=== PATIENT | female | born 1980 | race Caucasian/White ===

== ENCOUNTER 2017-09-01 17:58 | Inpatient (IN) | payer SELFPAY ==
[~2017-09-01 17:58] MED LIST: ISOVUE-370 76%-LOCM 1 ML ONE
[2017-09-01 18:43] LABS: #Basophils 0.1 thou/uL (0.0-0.2); #Eosinphils 0.1 thou/uL (0.0-0.7); #Lymphocytes 2.5 thou/uL (1.20-3.40); #Monocytes 0.6 thou/uL (0.11-0.59); #Neutrophils 7.3 thou/uL (1.40-6.50); %Basophils 0.8 % (0.0-1.0); %Eosinophils 0.5 % (0.0-10.0); %Lymphocytes 23.4 % (21.0-51.0); %Neutrophils 69.4 % (42.0-75.0); Hemoglobin 14.7 g/dL (12.0-16.0); Mean Corpuscular HGB CONC 34.4 g/dL (32.0-36.0); Mean Corpuscular Hemoglobin 37.6 pg (27.0-31.0); Mean Platelet Volume 7.6 fL (7.4-10.4); Platelet Count 272 thou/uL (130-400); RBC Distribution Width 12.2 % (11.5-14.5); Red Blood Cell (RBC) Count 3.91 mill/uL (4.20-5.40); White Blood Cell (WBC) Count 10.6 thou/uL (4.8-10.8)
[2017-09-01 18:53] LABS: BHCG - Serum Negative (NEGATIVE); Pregs Control Background? CLEAR/WHITE (CLR/WHITE); Pregs Control Bar Appear? YES (CONTROL BAR)
[2017-09-01 18:59] LABS: MDiff Complete? YES; Macrocytosis SLIGHT = 6-15 cells (100X) (0-5/hpf); PLT Morphology Comment Appears Adequate
[2017-09-01 19:08] LABS: ALT (SGPT) 53 U/L (8-55); AST (SGOT) 263 U/L (5-34); Albumin 3.5 g/dL (3.5-5.0); Alkaline Phosphatase 353 U/L (40-150); Anion Gap 14 mmol/L (10-20); BUN (Urea Nitrogen) 6 mg/dL (7.0-18.7); Bilirubin, Total 1.7 mg/dL (0.2-1.2); Calc. Creatinine Clearance 0 mL/min (70-130); Calcium 8.8 mg/dL (7.8-10.44); Carbon Dioxide 29 mmol/L (22-29); Chloride 95 mmol/L (98-107); Estimated GFR-MDRD Greater than 90; Globulin 3.5 g/dL (2.4-3.5); Glucose 95 mg/dL (70-105); Lipase 36 U/L (8-78); Sodium 136 mmol/L (136-145)
[2017-09-01 19:14] LABS: Potassium 2.4 mmol/L (3.5-5.1)
[2017-09-01 19:24] LABS: PTT 31.3 SEC (22.9-36.1)
[2017-09-01 19:25] LABS: INR-International Normal Ratio 1.1; Magnesium 1.4 mg/dL (1.6-2.6); Prothrombin Time 14.6 SEC (12.0-14.7)
[2017-09-01] MEDS ORDERED: Pantoprazole 40 MG VIAL ONE (19:28)
[2017-09-01] MEDS ORDERED: Morphine 4 MG/ML VIAL ONE (19:28)
--- NOTE | 2017-09-01 19:51 | RAD ---
PORTABLE UPRIGHT FRONTAL CHEST RADIOGRAPH 09/01/17 COMPARISON: None. HISTORY: Abdominal pain, dyspnea. FINDINGS: No pneumothorax, pleural fluid, focal consolidation, or alveolar edema. Heart and mediastinal contour s are unremarkable. IMPRESSION: No acute findings. POS: [facility]
[2017-09-01 19:52] LABS: Base Excess-Venous 7.8 mmol/L (0 (+/- 2.5)); Bicarbonate (HCO3v) 29.1 mmol/L (1.0-85.0); CO2 Tension (PvCO2) 30.3 mmHg (41.0-51.0); Calcium, Ionized 1.06 mmol/L (1.12-1.32); Hemoglobin - Calc 14.9 g/dL (12.0-18.0); O2 Tension (PvO2) 23.3 mmHg (35.0-45.0); Potassium 2.2 mmol/L (3.4-4.7); vO2 Saturation-calc 53.7 % (94-98)
[2017-09-01] MEDS ORDERED: Magnesium Sulfate 2 GM/100 ML BAG ONE (19:54)
[2017-09-01] MEDS ORDERED: Promethazine HCl 25 MG/ML VIAL ONE (20:01)
[2017-09-01 20:02] LABS: Bilirubin Moderate (Negative); Blood, Urine Negative (Negative); Clarity CLOUDY (Clear); Glucose, Urine (Dipstick) Negative (Negative); Leukocyte Small (Negative); Nitrite Positive (Negative); Protein, Urine (Dipstick) 30 mg/dL (Neg-Trace); Specific Gravity, Urine 1.022 (1.002-1.036)
[2017-09-01 20:04] LABS: Bacteria/HPF 1+ HPF (None Seen); RBC/HPF 0-3 HPF (0-3); WBC/HPF 21-50 HPF (0-3)
[2017-09-01 20:09] LABS: Yeast-AUWi Flag 55.9 (0-25.0)
[2017-09-01] MEDS ORDERED: Potassium Chloride 20 MEQ/100 ML PREMIX BAG ONE (20:16)
[2017-09-01 20:17] LABS: Other Casts/LPF None Seen LPF (0-3 Hyaline); Yeast-All Forms None Seen HPF (None Seen)
--- NOTE | 2017-09-01 20:52 | ULT ---
RIGHT UPPER QUADRANT ULTRASOUND 09/01/17 COMPARISON: None. HISTORY: Bloating epigastric pain. TECHNIQUE: Multiplanar morrison scale sonographic imaging of the right upper quadrant obtained. FINDINGS: The pancreas is grossly unremarkable but partially obscured by bowel gas, particularly the tail. The hepatic parenchyma is heterogeneous and echogenic, suggesting hepatocellular disease, such as steatos is. Right kidney measures 10.8 cm in craniocaudal dimension and demonstrates no evidence for stone, h ydronephrosis or mass. Common bile duct measures in the 4 mm range, within normal limits. No gallbladder wall thickening or pericholecystic fluid. No gallstones are seen. The loading inspector reports a negative Winkler's sign. IMPRESSION: No evidence for cholelithiasis, cholecystitis, or biliary dilatation. POS: [facility]
--- NOTE | 2017-09-01 21:27 | CT ---
CT OF ABDOMEN AND PELVIS 09/01/17 COMPARISON: None. HISTORY: Upper abdominal pain. TECHNIQUE: Serial axial CT imaging at 5 mm intervals from lung bases through pubic symphysis with IV contrast. C oronal reformatted imaging obtained. FINDINGS: The imaged lung bases are unremarkable. The lack of oral contrast limits assessment of the bowel. The liver is enlarged and demonstrates severe fatty infiltration. The liver measures 26 cm craniocaudal dimension and 28 cm transverse dimension. The gallbladder, spleen, pancreas, adrenal glands, and kidn eys demonstrate no acute findings. There is a low density lesion in the lower pole of the left kidney , likely on the basis of a small cyst. There is colonic wall prominence from the level of the splenic flexure through the rectum but the col on is decompressed and thus this likely simply represents decompressed colon and not colitis. Clinica l correlation is required. Appendix appears unremarkable. No evidence for small bowel obstruction. The vascular structures of the abdomen and pelvis appear patent. No lymphadenopathy is noted within t he abdomen or pelvis. The osseous structures demonstrate no worrisome findings. IMPRESSION: Markedly enlarged liver with severe fatty infiltration noted. POS: [facility]
[2017-09-01] MEDS ORDERED: Potassium Chloride 20 MEQ TAB ONE (21:33)
[2017-09-01 21:50] LABS: Bilirubin Small (Negative); Blood, Urine Negative (Negative); Clarity CLEAR (Clear); Glucose, Urine (Dipstick) Negative (Negative); Leukocyte Negative (Negative); Nitrite Negative (Negative); Protein, Urine (Dipstick) Negative (Neg-Trace)
[2017-09-01 21:51] LABS: Specific Gravity, Urine 1.053 (1.002-1.036)
[2017-09-01 23:02] LABS: Lactic Acid 3.7 mmol/L (0.5-2.2)
[2017-09-01 23:27] LABS: HBCM Index 0.09 S/CO (0-0.79); HBSAg Index 0.23 S/CO (0-0.99); HIV (1/2) Antibody/Antigen Non-Reactive (NonReactive); HIV 1/2 INDEX 0.13 S/CO (<1.00); Hep A IgM AB Non-Reactive (NonReactive); Hep A IgM S/CO 0.14 S/CO (0-0.79); Hep B Surf Ag Non-Reactive S/CO (NonReactive); Hep C IgG Ab Non-Reactive (NonReactive); Hep C Index 0.16 S/CO (0-0.79); Hepatitis B Core IGM Abs Non-Reactive (NonReactive)
[2017-09-01] MEDS ORDERED: Ondansetron ODT 4 MG TAB SL PRN (23:40)
[2017-09-01] MEDS ORDERED: Acetaminophen 325 MG TAB PO PRN (23:40)
[2017-09-01] MEDS ORDERED: Ondansetron HCl/PF 4 MG/2 ML Vial IVP PRN (23:40)
[2017-09-02 00:04] VITALS: BMI 19.8
[2017-09-02] MEDS: NS 0.9% w/ 20 MEQ KCL 1,000 ML IV SCH ×2 (00:24→09:18)
[2017-09-02] MEDS ORDERED: Melatonin 3 MG TAB PO SCH (01:00)
[2017-09-02] MEDS ORDERED: Ondansetron HCl/PF 4 MG/2 ML Vial IVP PRN (01:13)
[2017-09-02] MEDS ORDERED: Acetaminophen 325 MG TAB PO PRN (01:13)
[2017-09-02] MEDS ORDERED: Bisacodyl 5 MG TAB PO PRN (01:13)
[2017-09-02] MEDS: Morphine 4 MG/ML VIAL SLOW IVP PRN ×4 (01:29→20:54)
[2017-09-02] MEDS: cefTRIAXone\\ROCEPHIN 1 GM in Sterile Water 10 ML SLOW IVP SCH (02:10)
--- NOTE | 2017-09-02 02:14 | HP ---
PRIMARY CARE PHYSICIAN: Jose Oseguera. CHIEF COMPLAINT: Abdominal distention. HISTORY OF PRESENT ILLNESS: Ms. Scott is a pleasant 37-year-old lady who was seen at [facility] on 09/02/2017. She has a past medical history of pancreatitis. Over the last couple of months, she reports that she has been drinking alcohol every other day, since she is stressed out about her father's health. She also smokes cigarettes. Over the last few weeks, she has noted bilateral foot pain and burning sens ation. She also started having tingling sensation in the hands over the last few days. She had bila teral knee pain today. Over the last one month, she has noted abdominal bloating. She reports that she usually has anxiety and possible panic attacks, at least few times a week, even though she has never been formally diagnosed with panic disorder. REVIEW OF SYSTEMS: Other systems reviewed and noted to be negative. ALLERGIES: No known drug allergies. CURRENT MEDICATIONS: None. PAST MEDICAL HISTORY: Pancreatitis. PAST SURGICAL HISTORY: None. SOCIAL HISTORY: The patient drinks alcohol every other day. She smokes half a pack of cigarettes a day. She denies recreational drug use. PHYSICAL EXAMINATION: GENERAL: On examination, Ms. Scott is awake and alert, not in acute distress. VITAL SIGNS: Blood pressure is 115/81, pulse is 93, she is breathing at rate of 16, and saturating 1 00% on room air. She is afebrile. EYES: She has scleral icterus, no conjunctival pallor. ENT: Moist mucosal membranes, no oropharyngeal erythema or exudates. NECK: Supple, nontender, normal range of movement, trachea is midline. RESPIRATORY: Accessory muscles of breathing are not active. Chest wall movements are symmetric bila terally. LUNGS: Clear to auscultation without wheeze, rhonchi, or crepitations. CARDIOVASCULAR: S1 and S2 are heard, regular. Peripheral pulses palpable. No carotid bruit, no per icardial rub. ABDOMEN: Distended, nontender, bowel sounds heard. She has hepatomegaly. NEUROLOGIC: Cranial nerves II-XII intact, deep tendon reflexes are 2+. No flapping tremor. MUSCULOSKELETAL: Power is 5/5 in all 4 extremities. SKIN: No rashes or subcutaneous nodules. LYMPHATIC: No cervical lymphadenopathy. PSYCHIATRIC: Normal mood, normal affect. The patient is oriented to person, place, and time. LABORATORY DATA: Ms. Scott's labs and investigations were reviewed. I reviewed her electrocardiogr am, which shows normal sinus rhythm, no ST changes to suggest an acute coronary syndrome. I also rev iewed her chest x-ray, which does not show any pulmonary infiltrates. She had ultrasound of the abdo men, which did not show any cholelithiasis, cholecystitis, or biliary distention. She also had a CT scan of the abdomen and pelvis, which showed markedly enlarged liver with severe fatty infiltration. Laboratory investigation show normal white count, normal hemoglobin, normal platelet count, ESR 8, IN R 1.1. Sodium 136, potassium 2.4, creatinine 0.59, total bilirubin elevated at 1.7, AST elevated at 263, ALT normal at 53, alkaline phosphatase elevated at 353, normal lipase, normal TSH and normal ser um test. Acute hepatitis panel is nonreactive. Urinalysis is positive for ketones, nitrit e, bilirubin, urobilinogen, leukocyte esterase, wbc, and hyaline casts. ASSESSMENT AND PLAN: Ms. Scott is a pleasant 37-year-old lady who was seen at [facility] on 09/02/2017. Her problem list includes: 1. Urinary tract infection: She will be admitted to the hospital and treated with Rocephin. We juvenal l await urine cultures. 2. Abnormal liver function tests: Likely secondary to alcohol use, although other etiologies cannot be excluded at this time. We will consult Gastroenterology Service for help with further management . 3. Tobacco abuse: The patient has been counseled regarding tobacco cessation. We will start her on nicotine replacement therapy. 4. Alcohol abuse: The patient has been counseled regarding cessation of alcohol. 5. Hypokalemia: Replace potassium, recheck potassium level. LEVEL OF RISK: High. LEVEL OF COMPLEXITY: High.
[2017-09-02 04:53] LABS: ALT (SGPT) 33 U/L (8-55); AST (SGOT) 136 U/L (5-34); Albumin 2.8 g/dL (3.5-5.0); Alkaline Phosphatase 268 U/L (40-150); Anion Gap 12 mmol/L (10-20); BUN (Urea Nitrogen) 5 mg/dL (7.0-18.7); Bilirubin, Total 1.8 mg/dL (0.2-1.2); Calc. Creatinine Clearance 141 mL/min (70-130); Calcium 7.4 mg/dL (7.8-10.44); Carbon Dioxide 23 mmol/L (22-29); Chloride 106 mmol/L (98-107); Estimated GFR-MDRD Greater than 90; Globulin 2.6 g/dL (2.4-3.5); Glucose 92 mg/dL (70-105); Potassium 2.6 mmol/L (3.5-5.1); Protein, Total 5.4 g/dL (6.0-8.3); Sodium 138 mmol/L (136-145)
[2017-09-02] MEDS: Potassium Chloride 20 MEQ in Premix Bag 1 BAG IVPB SCH ×4 (05:43→13:58)
[2017-09-02] MEDS: Enoxaparin Sodium 40 MG/0.4 ML SYRINGE SC SCH (07:39)
[2017-09-02] MEDS: Nicotine 21 MG PATCH TD SCH (10:01)
[2017-09-03] MEDS: cefTRIAXone\\ROCEPHIN 1 GM in Sterile Water 10 ML SLOW IVP SCH (01:30)
[2017-09-03 01:54] LABS: Anion Gap 9 mmol/L (10-20); BUN (Urea Nitrogen) 4 mg/dL (7.0-18.7); Calc. Creatinine Clearance 160 mL/min (70-130); Calcium 7.5 mg/dL (7.8-10.44); Carbon Dioxide 24 mmol/L (22-29); Chloride 106 mmol/L (98-107); Estimated GFR-MDRD Greater than 90; Glucose 87 mg/dL (70-105); Potassium 3.7 mmol/L (3.5-5.1); Sodium 135 mmol/L (136-145)
[2017-09-03] MEDS: Morphine 4 MG/ML VIAL SLOW IVP PRN ×3 (03:56→17:56)
[2017-09-03 04:45] LABS: INR-International Normal Ratio 1.2; Prothrombin Time 15.6 SEC (12.0-14.7)
[2017-09-03 04:48] LABS: #Eosinphils 0.1 thou/uL (0.0-0.7); #Lymphocytes 2.3 thou/uL (1.20-3.40); #Monocytes 0.4 thou/uL (0.11-0.59); #Neutrophils 3.4 thou/uL (1.40-6.50); %Basophils 0.5 % (0.0-1.0); %Eosinophils 1.2 % (0.0-10.0); %Lymphocytes 36.8 % (21.0-51.0); %Monocytes 5.7 % (0.0-10.0); %Neutrophils 55.9 % (42.0-75.0); Hemoglobin 11.2 g/dL (12.0-16.0); Mean Corpuscular HGB CONC 34.7 g/dL (32.0-36.0); Mean Corpuscular Hemoglobin 38.8 pg (27.0-31.0); Mean Platelet Volume 8.6 fL (7.4-10.4); Platelet Count 146 thou/uL (130-400); Red Blood Cell (RBC) Count 2.89 mill/uL (4.20-5.40); White Blood Cell (WBC) Count 6.1 thou/uL (4.8-10.8)
[2017-09-03 04:59] LABS: ALT (SGPT) 25 U/L (8-55); AST (SGOT) 80 U/L (5-34); Acetaminophen Less than 6.0 mcg/mL (10.0-30.0); Albumin 2.8 g/dL (3.5-5.0); Alkaline Phosphatase 255 U/L (40-150); Anion Gap 9 mmol/L (10-20); BUN (Urea Nitrogen) 4 mg/dL (7.0-18.7); Bilirubin, Total 1.4 mg/dL (0.2-1.2); Calc. Creatinine Clearance 160 mL/min (70-130); Calcium 7.5 mg/dL (7.8-10.44); Carbon Dioxide 24 mmol/L (22-29); Chloride 105 mmol/L (98-107); Estimated GFR-MDRD Greater than 90; Globulin 2.6 g/dL (2.4-3.5); Glucose 81 mg/dL (70-105); Iron Binding Capacity, Total 139 mcg/dL (265-497); Magnesium 1.6 mg/dL (1.6-2.6); Phosphorus 2.9 mg/dL (2.3-4.7); Potassium 3.4 mmol/L (3.5-5.1); Protein, Total 5.4 g/dL (6.0-8.3); Sodium 135 mmol/L (136-145)
--- NOTE | 2017-09-03 06:28 | CON ---
DATE OF CONSULTATION: 09/02/2017 REASON FOR CONSULTATION: GI consult for fatty liver. HISTORY OF PRESENT ILLNESS: Ms. Scott is a 37-year-old female. She states she has never had any kn own liver disease. She went to an outside urgent care clinic because she had been having a little bi t of bloating for the past month. She actually initially went to the other clinic because she had be en having some shooting pain in her feet and pins and needle feeling in her feet and pain in her legs . It was at the urgent care clinic where her protuberant abdomen and hepatomegaly were noted on exam and she was sent to the emergency room here. She states she has noticed the abdominal pain and prot uberance over the past month and the lower extremity pins and needle-like sensation in her feet and l ower legs in the past couple of weeks. She had been taking some Tylenol and ibuprofen occasionally a t home for that, but then stopped as it did not work and she went to the doctor. She has not been ta randi any other medications. REVIEW OF SYSTEMS: Denies any chills, fever, rashes, myalgias or arthralgias, recent viral illnesses . HEENT: Negative. Head showed no evidence of headaches or vision changes. CARDIOVASCULAR: Negative for heart disease. RESPIRATORY: Negative for possibly some shortness of breath. She says she cannot take a deep breath sometimes. : Occasional hematuria. NEUROLOGIC: Paresthesia in the distal extremities with some pins and needle like neuropathic pain in her feet. GENERAL: Negative for weight loss. PSYCHIATRIC HISTORY: Negative for psychiatric history, negative for depression. FAMILY HISTORY: Negative for liver disease. Negative for psychiatric disease. PAST MEDICAL HISTORY: Pancreatitis related probably to alcohol abuse several years ago. She does no t drink now. She has a 16-year-old. ____ tetanus. SOCIAL HISTORY: The patient drinks alcohol maybe once or twice a day, but not every day. She does n ot smoke. She denies using drugs, denies using any supplements. ALLERGIES: None known. MEDICATIONS AT HOME: None. PRESENT MEDICATIONS: Lovenox, p.r.n. morphine, Nicoderm patch, Tylenol p.r.n. PHYSICAL EXAMINATION: GENERAL: She is resting comfortably in bed. She is in no distress. She has no spider angioma of th e chest. HEENT: Oropharynx without lesions. She has no palmar erythema. The muscle wasting. VITAL SIGNS: Temperature 98, pulse rate 68, blood pressure 115/80. ABDOMEN: Slightly protuberant. There is palpable hepatomegaly. There is no rebound. There is no g uarding. There is no shifting dullness or fluid waves. EXTREMITIES: No clubbing, cyanosis or edema. LABORATORY STUDIES: White count 10.6, hemoglobin 14.7, MCV 109, platelet count 272. INR 1.1, potass ium 2.6. Sodium 138, BUN and creatinine are 5 and 0.52, calcium 7.4, bilirubin 1.8, AST 136, ALT 33, alkaline phosphatase 268, protein 5.4, albumin 2.8. TSH 1.6. test was negative. Magnesi um was 1.4 on presentation. Hepatitis A, B and C and HIV are negative. CT scan of abdomen and pelvis yesterday evening; marked enlarged liver with severe fatty infiltration , chronic problems at the level of the splenic flexure to the rectum. This may be from a decompressi on or portal hypertension. ASSESSMENT: This is a 37-year-old female with a significant hepatomegaly with fat in the liver. Dif ferential diagnoses include alcoholic liver disease. She does have some history of pancreatitis with alcohol disease in the past. Other considerations would be alpha 1 antitrypsin disease, hereditary nonalcoholic fatty liver disease, which can affect those which are ____ or Kaleb's disease. RECOMMENDATIONS: Markers for a underlying fatty liver, especially Kaleb's needs to be considered. She needs to have a 24 hour urine copper as well as she has some neurologic symptoms. There should s ome thought given to whether maybe this is alcohol related, she presents with hypokalemia and hypomag nesemia. We will check her phosphorus as well, she may be surreptitiously using more alcohol than jani mendosa is admitting, although she seems to be pretty open up on her history.
[2017-09-03] MEDS ORDERED: Mag-Al 1200 mg/1200 mg/30 ML UDCUP PO PRN (06:55)
[2017-09-03] MEDS ORDERED: Milk Of Magnesia 30 ML UDCUP PO PRN (06:55)
[2017-09-03] MEDS ORDERED: Diabetic Tussin 200 MG/10 ML UDCUP PO PRN (06:55)
[2017-09-03] MEDS ORDERED: Loratadine 10 MG TAB PO PRN (06:55)
[2017-09-03] MEDS ORDERED: Sodium Chloride 0.65% Nasal 44 ML BOT EA NARE PRN (06:55)
[2017-09-03] MEDS ORDERED: Eucerin (Mineral Oil/Petrolatum,White) 30 gm Jar TOP PRN (06:55)
[2017-09-03] MEDS ORDERED: Chloraseptic Spray 180 ml Bottle PO PRN (06:55)
[2017-09-03] MEDS ORDERED: hydrALAZINE 20 MG/ML VIAL SLOW IVP PRN (06:55)
[2017-09-03] MEDS ORDERED: Artificial Tears 18 DROP/0.9 ML EA EYE PRN (06:55)
[2017-09-03] MEDS ORDERED: Ondansetron ODT 4 MG TAB PO PRN (06:55)
[2017-09-03] MEDS: Famotidine 20 MG TAB PO SCH ×2 (09:11→20:32)
[2017-09-03] MEDS: Folic Acid 1 MG TAB PO SCH (09:11)
[2017-09-03] MEDS: Cyanocobalamin (Vitamin B-12) 1,000 MCG TAB PO SCH (09:11)
[2017-09-03] MEDS: Enoxaparin Sodium 40 MG/0.4 ML SYRINGE SC SCH (09:11)
[2017-09-03] MEDS: Multivitamin W/ Minerals 1 TAB PO SCH (09:11)
[2017-09-03] MEDS: Nicotine 21 MG PATCH TD SCH (09:20)
--- NOTE | 2017-09-03 12:14 | PDOC.PN ---
- Subjective Encounter Start Date: 09/03/17 Encounter Start Time: 08:00 -: old records requested/rev Patient seen and examined for UTI. No new complaints. Noted overnight events - Objective MAR Reviewed: Yes Vital Signs & Weight: Vital Signs (12 hours) Temp Pulse Resp BP BP Pulse Ox 09/03/17 08:00 98.5 F 90 18 133/93 H 133/93 H 98 09/03/17 04:00 97.7 F 83 20 127/87 127/87 99 09/03/17 01:13 99 Weight Admit Weight 130 lb 9.6 oz Weight 130 lb 9.6 oz I&O: 09/02/17 09/03/17 09/04/17 06:59 06:59 06:59 Intake Total 1060 Balance 1060 Result Diagrams: 09/03/17 03:55 09/03/17 03:55 Phys Exam - Physical Examination Constitutional: NAD HEENT: PERRLA, moist MMs Neck: no nodes, no JVD, supple, full ROM Respiratory: no wheezing, no rales, no rhonchi Cardiovascular: RRR, no significant murmur, no rub Gastrointestinal: soft, non-tender, no distention, positive bowel sounds Musculoskeletal: no edema, pulses present Neurological: non-focal, normal sensation Psychiatric: normal affect, A&O x 3 Skin: no rash, normal turgor Dx/Plan (1) Abnormal LFTs Code(s): R94.5 - ABNORMAL RESULTS OF LIVER FUNCTION STUDIES Status: Acute (2) Hepatic steatosis Code(s): K76.0 - FATTY (CHANGE OF) LIVER, NOT ELSEWHERE CLASSIFIED Status: Acute (3) Hepatomegaly Code(s): R16.0 - HEPATOMEGALY, NOT ELSEWHERE CLASSIFIED Status: Acute (4) Hypoalbuminemia Code(s): E88.09 - OTH DISORDERS OF PLASMA-PROTEIN METABOLISM, NEC Status: Acute (5) Hypokalemia Code(s): E87.6 - HYPOKALEMIA Status: Acute (6) Hypomagnesemia Code(s): E83.42 - HYPOMAGNESEMIA Status: Acute (7) UTI (urinary tract infection) Status: Acute (8) Macrocytic anemia Code(s): D53.9 - NUTRITIONAL ANEMIA, UNSPECIFIED Status: Chronic (9) Protein-calorie malnutrition, moderate Code(s): E44.0 - MODERATE PROTEIN-CALORIE MALNUTRITION Status: Chronic - Plan cont current plan of care * add folic acid, vitamin B12, thiamin, theragran * follow up on send out test result * medication reviewed as below * symptomatic treatment * continue iv antibiotics for UTI * will repeat labs tomorrow. Review of Systems - Review of Systems Eyes: negative: Pain, Vision Change, Conjunctivae Inflammation, Eyelid Inflammation, Redness, Other ENT: negative: Ear Pain, Ear Discharge, Nose Pain, Nose Discharge, Nose Congestion, Mouth Pain, Mouth Swelling, Throat Pain, Throat Swelling, Other Respiratory: negative: Cough, Dry, Shortness of Breath, Hemoptysis, SOB with Excertion, Pleuritic Pain, Sputum, Wheezing Cardiovascular: negative: chest pain, palpitations, orthopnea, paroxysmal nocturnal dyspnea, edema, light headedness, other Gastrointestinal: negative: Nausea, Vomiting, Abdominal Pain, Diarrhea, Constipation, Melena, Hematochezia, Other Genitourinary: negative: Dysuria, Frequency, Incontinence, Hematuria, Retention , Other Musculoskeletal: negative: Neck Pain, Shoulder Pain, Arm Pain, Back Pain, Hand Pain, Leg Pain, Foot Pain, Other Skin: negative: Rash, Lesions, Ace, Bruising, Other - Medications/Allergies Allergies/Adverse Reactions: Allergies Allergy/AdvReac Type Severity Reaction Status Date / Time No Known Drug Allergies Allergy Verified 09/01/17 23:54 Medications: Current Medications Acetaminophen (Tylenol) 650 mg PO Q4H PRN PRN Reason: Headache/Fever or Pain Al Hydroxide/Mg Hydroxide (Maalox) 15 ml PO Q4H PRN PRN Reason: Heartburn or Indigestion Artificial Tears (Tears Naturale) 0 drop EA EYE PRN PRN PRN Reason: Dry Eyes Bisacodyl (Dulcolax) 10 mg PO DAILYPRN PRN PRN Reason: Constipation Cyanocobalamin (Vitamin B-12) 1,000 mcg PO DAILY [facility] Last Admin: 09/03/17 09:11 Dose: 1,000 mcg Enoxaparin Sodium (Lovenox) 40 mg SC 0900 [facility] Last Admin: 09/03/17 09:11 Dose: 40 mg Famotidine (Pepcid) 20 mg PO BID [facility] Last Admin: 09/03/17 09:11 Dose: 20 mg Folic Acid (Folvite) 1 mg PO DAILY [facility] Last Admin: 09/03/17 09:11 Dose: 1 mg Guaifenesin (Robitussin Sf) 200 mg PO Q4H PRN PRN Reason: Cough Hydralazine HCl (Apresoline) 10 mg SLOW IVP Q4H PRN PRN Reason: Systolic BP > 180 Ceftriaxone Sodium 1 gm/ (Sterile Water) 10 mls @ 120 mls/hr SLOW IVP Q24HR [facility] Last Admin: 09/03/17 01:30 Dose: 10 mls Iron/Minerals/Multivitamins (Theragran M) 1 tab PO DAILY [facility] Last Admin: 09/03/17 09:11 Dose: 1 tab Loratadine (Claritin) 10 mg PO DAILYPRN PRN PRN Reason: Sinus Symptoms Magnesium Hydroxide (Milk Of Magnesium) 30 ml PO DAILYPRN PRN PRN Reason: Constipation Mineral Oil/White Petrolatum (Eucerin Cream) 0 gm TOP BIDPRN PRN PRN Reason: Dry Skin Morphine Sulfate (Morphine) 2 mg SLOW IVP Q6H PRN PRN Reason: Pain Last Admin: 09/03/17 10:31 Dose: 2 mg Nicotine (Nicoderm Patch) 21 mg TD Q24HR [facility] Last Admin: 09/03/17 09:20 Dose: Not Given Ondansetron HCl (Zofran) 4 mg IVP Q6H PRN PRN Reason: Nausea/Vomiting Ondansetron HCl (Zofran Odt) 4 mg PO Q6H PRN PRN Reason: Nausea/Vomiting Phenol (Chloraseptic [place] 180 Ml Bot) 0 ml PO PRN PRN PRN Reason: Sore Throat Sodium Chloride (Flush - Normal Saline) 10 ml IVF Q12HR [facility] Last Admin: 09/03/17 09:11 Dose: 10 ml Sodium Chloride (Flush - Normal Saline) 10 ml IVF PRN PRN PRN Reason: Saline Flush Last Admin: 09/02/17 00:25 Dose: 10 ml Sodium Chloride ([place] Nasal [place] 0.65%) 0 ml EA NARE QIDPRN PRN PRN Reason: Nasal Congestion Thiamine HCl (Thiamine) 100 mg PO DAILY [facility] Last Admin: 09/03/17 09:11 Dose: 100 mg Tramadol HCl (Ultram) 50 mg PO Q4H PRN PRN Reason: Moderate Pain (4-6)
[2017-09-03 13:01] LABS: ANA Symphony (Qualitative) Negative (Negative); EliA Vaculitis New Method **** NEW METHOD ****; Mitochondrial Ab Less than 0.5 U/mL (<4 Negative); dsDNA IgG Antibody 2.6 IU/mL (<10 Negative)
--- NOTE | 2017-09-03 16:14 | PRG ---
DATE OF SERVICE: 09/03/2017 SUBJECTIVE: Ms. Scott is in the phone, talking with her friend. She is feeling fine. She started urine collection this morning. OBJECTIVE: VITAL SIGNS: Temperature is 98.2, blood pressure is 125/85, pulse 79. Re-examining her chest, she does have spider angioma along the upper chest and some mild palmar eryth frantz. LABORATORY STUDIES: White count 6.1, hemoglobin 11.2, platelet count is 146. INR is 1.2. Ferritin is 1225, TIBC 139, bilirubin 1.4. AST and ALT are 80 and 25. Alkaline phosphatase is 255. Albumin is 2.8. Acetaminophen level normal. IgG and IgM are normal. Serology; hepatitis A, B and C and HIV are negative. ASSESSMENT: Fatty liver with enlarged liver. This could be from alcohol toxicity. She denies any a lcohol intake. She states she does drink socially. It could be that she is got other underlying his tory cholestatic fatty liver including Kaleb's disease, alpha 1 antitrypsin disease or congenital fa tty liver disease. Serologic workup is pending. RECOMMENDATIONS: Avoidance of all alcohol. Await laboratory studies. She is stable, she can probab ly go home. Once the urine collection is complete, then I can follow up in the outpatient clinic.
[2017-09-03] MEDS: traMADol HCl 50 MG TAB PO PRN (20:33)
[2017-09-04] MEDS: traMADol HCl 50 MG TAB PO PRN ×3 (00:11→09:14)
[2017-09-04] MEDS: cefTRIAXone\\ROCEPHIN 1 GM in Sterile Water 10 ML SLOW IVP SCH (01:30)
[2017-09-04 05:19] LABS: #Basophils 0.1 thou/uL (0.0-0.2); #Eosinphils 0.1 thou/uL (0.0-0.7); #Lymphocytes 2.9 thou/uL (1.20-3.40); #Monocytes 0.5 thou/uL (0.11-0.59); %Basophils 0.7 % (0.0-1.0); %Eosinophils 1.3 % (0.0-10.0); %Lymphocytes 34.2 % (21.0-51.0); %Monocytes 5.6 % (0.0-10.0); %Neutrophils 58.2 % (42.0-75.0); Hemoglobin 12.7 g/dL (12.0-16.0); Mean Corpuscular HGB CONC 34.5 g/dL (32.0-36.0); Mean Corpuscular Hemoglobin 38.1 pg (27.0-31.0); Mean Platelet Volume 8.2 fL (7.4-10.4); Platelet Count 173 thou/uL (130-400); RBC Distribution Width 11.9 % (11.5-14.5); Red Blood Cell (RBC) Count 3.34 mill/uL (4.20-5.40); White Blood Cell (WBC) Count 8.6 thou/uL (4.8-10.8)
[2017-09-04 05:51] LABS: ALT (SGPT) 27 U/L (8-55); AST (SGOT) 90 U/L (5-34); Albumin 3.3 g/dL (3.5-5.0); Alkaline Phosphatase 289 U/L (40-150); Anion Gap 13 mmol/L (10-20); BUN (Urea Nitrogen) 4 mg/dL (7.0-18.7); Bilirubin, Total 1.1 mg/dL (0.2-1.2); Calc. Creatinine Clearance 141 mL/min (70-130); Calcium 8.7 mg/dL (7.8-10.44); Carbon Dioxide 25 mmol/L (22-29); Chloride 101 mmol/L (98-107); Estimated GFR-MDRD Greater than 90; Glucose 91 mg/dL (70-105); Potassium 3.7 mmol/L (3.5-5.1); Protein, Total 6.3 g/dL (6.0-8.3); Sodium 135 mmol/L (136-145)
[2017-09-04 08:06] VITALS: TEMP 97.8
[2017-09-04] MEDS: Famotidine 20 MG TAB PO SCH (08:08)
[2017-09-04] MEDS: Folic Acid 1 MG TAB PO SCH (08:08)
[2017-09-04] MEDS: Cyanocobalamin (Vitamin B-12) 1,000 MCG TAB PO SCH (08:09)
[2017-09-04] MEDS: Nicotine 21 MG PATCH TD SCH (08:09)
[2017-09-04] MEDS: Multivitamin W/ Minerals 1 TAB PO SCH (08:09)
[2017-09-04] MEDS: Enoxaparin Sodium 40 MG/0.4 ML SYRINGE SC SCH (08:09)
--- NOTE | 2017-09-04 10:10 | PDOC.PN ---
- Subjective Encounter Start Date: 09/04/17 Encounter Start Time: 09:20 Patient seen and examined for abnormal lft. No new complaints. No overnight events - Objective MAR Reviewed: Yes Vital Signs & Weight: Vital Signs (12 hours) Temp Pulse Resp BP BP BP Pulse Ox 09/04/17 08:00 97.8 F 92 16 99/63 99/63 97 09/04/17 04:57 98.0 F 97 18 121/82 121/82 97 09/04/17 00:11 97.8 F 83 18 123/83 123/83 100 Weight Admit Weight 130 lb 9.6 oz Weight 130 lb 9.6 oz I&O: 09/03/17 09/04/17 09/05/17 06:59 06:59 06:59 Intake Total 1060 1670 Output Total 650 Balance 1060 1020 Result Diagrams: 09/04/17 05:07 09/04/17 05:07 Phys Exam - Physical Examination Constitutional: NAD HEENT: PERRLA, moist MMs, sclera anicteric Neck: no JVD, supple Respiratory: no wheezing, no rales, no rhonchi Cardiovascular: RRR, no significant murmur, no rub Gastrointestinal: soft, non-tender, no distention, positive bowel sounds Musculoskeletal: no edema, pulses present Neurological: non-focal, normal sensation Psychiatric: normal affect, A&O x 3 Skin: no rash, normal turgor Dx/Plan (1) Abnormal LFTs Code(s): R94.5 - ABNORMAL RESULTS OF LIVER FUNCTION STUDIES Status: Acute (2) Hepatic steatosis Code(s): K76.0 - FATTY (CHANGE OF) LIVER, NOT ELSEWHERE CLASSIFIED Status: Acute (3) Hepatomegaly Code(s): R16.0 - HEPATOMEGALY, NOT ELSEWHERE CLASSIFIED Status: Acute (4) Hypoalbuminemia Code(s): E88.09 - OTH DISORDERS OF PLASMA-PROTEIN METABOLISM, NEC Status: Acute (5) Hypokalemia Code(s): E87.6 - HYPOKALEMIA Status: Acute (6) Hypomagnesemia Code(s): E83.42 - HYPOMAGNESEMIA Status: Acute (7) UTI (urinary tract infection) Status: Acute (8) Macrocytic anemia Code(s): D53.9 - NUTRITIONAL ANEMIA, UNSPECIFIED Status: Chronic (9) Protein-calorie malnutrition, moderate Code(s): E44.0 - MODERATE PROTEIN-CALORIE MALNUTRITION Status: Chronic - Plan cont current plan of care, continue antibiotics * medication reviewed as below * symptomatic treatment * cipro for 5 days * advised to follow up with GI * will discharge today. Review of Systems - Review of Systems Eyes: negative: Pain, Vision Change, Conjunctivae Inflammation, Eyelid Inflammation, Redness, Other ENT: negative: Ear Pain, Ear Discharge, Nose Pain, Nose Discharge, Nose Congestion, Mouth Pain, Mouth Swelling, Throat Pain, Throat Swelling, Other Respiratory: negative: Cough, Dry, Shortness of Breath, Hemoptysis, SOB with Excertion, Pleuritic Pain, Sputum, Wheezing Cardiovascular: negative: chest pain, palpitations, orthopnea, paroxysmal nocturnal dyspnea, edema, light headedness, other Gastrointestinal: negative: Nausea, Vomiting, Abdominal Pain, Diarrhea, Constipation, Melena, Hematochezia, Other Genitourinary: negative: Dysuria, Frequency, Incontinence, Hematuria, Retention , Other Musculoskeletal: negative: Neck Pain, Shoulder Pain, Arm Pain, Back Pain, Hand Pain, Leg Pain, Foot Pain, Other Skin: negative: Rash, Lesions, Ace, Bruising, Other - Medications/Allergies Allergies/Adverse Reactions: Allergies Allergy/AdvReac Type Severity Reaction Status Date / Time No Known Drug Allergies Allergy Verified 09/01/17 23:54 Medications: Current Medications Acetaminophen (Tylenol) 650 mg PO Q4H PRN PRN Reason: Headache/Fever or Pain Al Hydroxide/Mg Hydroxide (Maalox) 15 ml PO Q4H PRN PRN Reason: Heartburn or Indigestion Artificial Tears (Tears Naturale) 0 drop EA EYE PRN PRN PRN Reason: Dry Eyes Bisacodyl (Dulcolax) 10 mg PO DAILYPRN PRN PRN Reason: Constipation Cyanocobalamin (Vitamin B-12) 1,000 mcg PO DAILY [facility] Last Admin: 09/04/17 08:09 Dose: 1,000 mcg Enoxaparin Sodium (Lovenox) 40 mg SC 0900 [facility] Last Admin: 09/04/17 08:09 Dose: 40 mg Famotidine (Pepcid) 20 mg PO BID [facility] Last Admin: 09/04/17 08:08 Dose: 20 mg Folic Acid (Folvite) 1 mg PO DAILY [facility] Last Admin: 09/04/17 08:08 Dose: 1 mg Guaifenesin (Robitussin Sf) 200 mg PO Q4H PRN PRN Reason: Cough Hydralazine HCl (Apresoline) 10 mg SLOW IVP Q4H PRN PRN Reason: Systolic BP > 180 Ceftriaxone Sodium 1 gm/ (Sterile Water) 10 mls @ 120 mls/hr SLOW IVP Q24HR [facility] Last Admin: 09/04/17 01:30 Dose: 10 mls Iron/Minerals/Multivitamins (Theragran M) 1 tab PO DAILY [facility] Last Admin: 09/04/17 08:09 Dose: 1 tab Loratadine (Claritin) 10 mg PO DAILYPRN PRN PRN Reason: Sinus Symptoms Magnesium Hydroxide (Milk Of Magnesium) 30 ml PO DAILYPRN PRN PRN Reason: Constipation Mineral Oil/White Petrolatum (Eucerin Cream) 0 gm TOP BIDPRN PRN PRN Reason: Dry Skin Morphine Sulfate (Morphine) 2 mg SLOW IVP Q6H PRN PRN Reason: Pain Last Admin: 09/03/17 17:56 Dose: 2 mg Nicotine (Nicoderm Patch) 21 mg TD Q24HR [facility] Last Admin: 09/04/17 08:09 Dose: Not Given Ondansetron HCl (Zofran) 4 mg IVP Q6H PRN PRN Reason: Nausea/Vomiting Ondansetron HCl (Zofran Odt) 4 mg PO Q6H PRN PRN Reason: Nausea/Vomiting Phenol (Chloraseptic [place] 180 Ml Bot) 0 ml PO PRN PRN PRN Reason: Sore Throat Sodium Chloride (Flush - Normal Saline) 10 ml IVF Q12HR [facility] Last Admin: 09/04/17 08:09 Dose: 10 ml Sodium Chloride (Flush - Normal Saline) 10 ml IVF PRN PRN PRN Reason: Saline Flush Last Admin: 09/04/17 01:31 Dose: 10 ml Sodium Chloride ([place] Nasal [place] 0.65%) 0 ml EA NARE QIDPRN PRN PRN Reason: Nasal Congestion Thiamine HCl (Thiamine) 100 mg PO DAILY [facility] Last Admin: 09/04/17 08:09 Dose: 100 mg Tramadol HCl (Ultram) 50 mg PO Q4H PRN PRN Reason: Moderate Pain (4-6) Last Admin: 09/04/17 09:14 Dose: 50 mg
--- NOTE | 2017-09-04 11:10 | DIS ---
DATE OF ADMISSION: 09/01/2017 DATE OF DISCHARGE: 09/04/2017 PRIMARY CARE PHYSICIAN: [facility] call admission. DISCHARGE DISPOSITION: Home. PRIMARY DISCHARGE DIAGNOSES: 1. Hepatomegaly and hepatic steatosis. 2. Abnormal liver function tests. 3. Hypoalbuminemia. 4. Hypokalemia, hypomagnesemia. 5. Urinary tract infection. SECONDARY DISCHARGE DIAGNOSES: Macrocytic anemia and moderate protein calorie malnutrition. PRIMARY PROCEDURE/OPERATION: None. RADIOLOGICAL INVESTIGATION: Abdominal ultrasound was unremarkable other than mild dilated intra and extrahepatic bile duct. Chest x-ray normal. Abdomen and pelvis CT scan showed hepatomegaly and fatt y infiltration. SIGNIFICANT LABORATORY DATA: WBC 8.6, hemoglobin 12.7, MCV 110, platelet 173. INR 1.2. Sodium 135, potassium 3.7, BUN 4, creatinine 0.52, ferritin 1225, AST 90, ALT 27, alkaline phosphatase 289, and albumin 3.3. Urinalysis suggestive of UTI. Acetaminophen level less than 6. IGGM and IGG total nor mal. KIN negative. Anti-dsDNA and antimitochondrial antibody negative, hepatitis profile and HIV ne gative. Blood culture negative. Urine culture negative. DISCHARGE MEDICATIONS: Cipro 250 mg p.o. b.i.d. for 5 more days, tramadol 50 mg p.o. q.6 hourly p.r. n., folic acid 1 mg p.o. daily, vitamin B12 1000 mcg p.o. daily, Pepcid 20 mg p.o. b.i.d., multivitam in 1 tablet p.o. daily, and thiamine 100 mg p.o. daily. CONTRAINDICATIONS: None. CODE STATUS: FULL CODE. INPATIENT CIRCULAR STUFFER: Dr. Wilson was consulted while in hospital. TEST RESULTS PENDING ON DISCHARGE: None. ALLERGIES: No known drug allergy. DISCHARGE PLAN: Post hospital, patient is instructed to follow up with Dr. Wilson as instructed in 1 -2 weeks. HOSPITAL COURSE: A 37-year-old female with above-mentioned medical problem who was admitted by Dr. Tucker phan, please see his H&P for further detail. The patient was admitted for abdominal distention and n ausea, and patient does have history of alcohol abuse. This admission, patient was found with abnorm al LFT. GI was consulted and they did a routine investigation to find out etiology of her chronic li doug disease, but at this point our suspicious is alcohol related alcoholic hepatitis because other te st is unremarkable so far. This patient's LFT remained stable. She does not have any encephalopathy . Her abnormal electrolytes were corrected while in hospital. She was having UTI and that is why jani mendosa was treated with Rocephin while in hospital. Her urine culture remained negative. Her blood cultu re was negative. We changed to Cipro for another 5 days. The patient will need follow up with GI fo r pending test result. Patient may need a liver biopsy as an outpatient basis if further investigati on required and warranted. The patient is seen and examined at bedside today. Please see my progress note from today for furthe r detail. The patient's pain and sensation was improved with tramadol and that is why 30 pills of tr amadol were prescribed upon discharge. Overall, the patient is medically stable for discharge today.
[2017-09-04 11:12] VITALS: BP 110/70
[2017-09-06 13:14] LABS: Smooth Muscle Total ABS 11 Units (0-19)
[2017-09-07 13:17] LABS: Alpha-1-Antitrypsin 149 mg/dL (90-200)
== END 2017-09-04 11:05 | disposition home or self-care (01) | DRG 442 ==
LOC: ERS 17:58 → T4-B 21:45
PROVIDERS: ADMIT Internal Medicine; ATTEND Internal Medicine
DX: K76.0 Fatty (change of) liver, not elsewhere classified (principal); N39.0 Urinary tract infection, site not specified; E44.0 Moderate protein-calorie malnutrition; Z68.1 Body mass index [BMI] 19.9 or less, adult; F17.210 Nicotine dependence, cigarettes, uncomplicated; F10.10 Alcohol abuse, uncomplicated; E87.6 Hypokalemia; E88.09 Other disorders of plasma-protein metabolism, not elsewhere classified; D50.9 Iron deficiency anemia, unspecified; B96.89 Other specified bacterial agents as the cause of diseases classified elsewhere
CPT/HCPCS: 36415; 51701; 71045; 74177; 76705; 80053; 80074; 80307; 81003; 81015; 82103; 82104; 82330; 82390; 82525; 82550; 82728; 82803; 83516; 83540; 83550; 83605; 83690; 83735; 84100; 84443; 84703; 85025; 85610; 85652; 85730; 86038; 86140; 86225; 87040; 87086; 87389; 93005; 96361; 96365; 96367; 96375; A4216; A4353; C9113; J0696; J1650; J2270; J2550; J3475; J3480

== ENCOUNTER 2019-10-18 17:59 | Inpatient (IN) | payer OTHER, SELFPAY ==
[~2019-10-18 17:59] MED LIST changes: +Heparin 1,000 UNITS/ML VIAL ONE; -ISOVUE-370 76%-LOCM 1 ML ONE; +PROPOFOL 200 MG/20 ML VIAL ONE; +Rocuronium Bromide 10 MG/ML (10ML VIAL) ONE; +Succinylcholine Chloride 20 MG/ML 10 ml SYRINGE FS ONE
[2019-10-18] MEDS ORDERED: Morphine 2 MG/ML SYRINGE ONE ×2 (18:19→23:13)
--- NOTE | 2019-10-18 18:54 | RAD ---
EXAM: CHEST ONE VIEW HISTORY: Tachycardia COMPARISON: 09/01/2017 FINDINGS: Cardiac silhouette is magnified by projection. Pulmonary vasculature is within normal limits. The luis gs are clear. The osseous structures are intact. No interval change. IMPRESSION: No acute cardiopulmonary process.
--- NOTE | 2019-10-18 18:59 | RAD ---
Exam: XR Femur Rt 2 View STANDARD HISTORY: Post fall with swelling and pain right lower extremity. COMPARISON: None FINDINGS: There is subcutaneous soft tissue swelling involving the proximal thigh both medially and laterally. Few oval-shaped lucencies are seen overlying the soft tissues of the thigh which are most suggestive of artifact. No acute fracture, dislocation, or other acute osseous abnormality is identified. Phleboliths overlie the visualized right hemipelvis be IMPRESSION: 1. No acute osseous abnormality. 2. Subcutaneous soft tissue swelling about the proximal thigh.
[2019-10-18 19:06] LABS: Hemoglobin 3.4 g/dL (12.0-16.0); Mean Corpuscular HGB CONC 32.5 g/dL (32.0-36.0); Mean Corpuscular Hemoglobin 37.7 pg (27.0-31.0); Mean Platelet Volume 8.8 fL (7.4-10.4); Platelet Count 60 thou/uL (130-400); RBC Distribution Width 17.3 % (11.5-14.5); Red Blood Cell (RBC) Count 0.91 mill/uL (4.20-5.40); White Blood Cell (WBC) Count 8.9 thou/uL (4.8-10.8)
[2019-10-18 19:07] LABS: ALT (SGPT) 28 U/L (8-55); AST (SGOT) 184 U/L (5-34); Albumin 2.3 g/dL (3.5-5.0); Alkaline Phosphatase 368 U/L (40-110); Anion Gap 16 mmol/L (10-20); BUN (Urea Nitrogen) 11 mg/dL (7.0-18.7); Bilirubin, Total 10.1 mg/dL (0.2-1.2); Calc. Creatinine Clearance 0 mL/min (70-130); Carbon Dioxide 24 mmol/L (22-29); Chloride 95 mmol/L (98-107); Estimated GFR-MDRD 86; Globulin 4.4 g/dL (2.4-3.5); Glucose 98 mg/dL (70-105); Lipase 40 U/L (8-78); Protein, Total 6.7 g/dL (6.0-8.3); Sodium 132 mmol/L (136-145)
[2019-10-18 19:14] LABS: Potassium 2.7 mmol/L (3.5-5.1)
[2019-10-18 19:33] LABS: #Eosinphils 0.1 thou/uL (0.0-0.7); #Lymphocytes 2.6 thou/uL (1.20-3.40); #Monocytes 1.1 thou/uL (0.11-0.59); #Neutrophils 5.2 thou/uL (1.40-6.50); %Basophils 0.4 % (0.0-1.0); %Eosinophils 0.7 % (0.0-10.0); %Lymphocytes 28.5 % (21.0-51.0); %Monocytes 12.6 % (0.0-10.0); %Neutrophils 57.8 % (42.0-75.0); Anisocytosis MARKED = >30 cells (100X) (0-5/hpf); Band 3 % (5-11); Lymphocytes 25 % (21-51); MDiff Complete? YES; Macrocytosis MODERATE=16-30 cells (100X) (0-5/hpf); Monocytes 6 % (0-10); Neutrophil 65 % (42-75); Platelet Morphology Comment Appears Decreased; Polychromasia MODERATE = 3-4 cells (100X) (0-2/hpf); Reactive Lymphocytes 1 % (0-10); Reflex for Review?? YES
--- NOTE | 2019-10-18 19:39 | ULT ---
EXAM: Right lower extremity venous Doppler HISTORY: Right lower extremity swelling/edema. FINDINGS: Grayscale, color-flow, Doppler evaluation, spectral analysis of the right lower extremity venous stru ctures is performed with 2-D imaging. The right common femoral, superficial femoral, popliteal, posterior tibial, proximal greater saphenous and profunda femoral veins are imaged. There is normal luminal compressibility, flow, and augmentation in the visualized deep venous structu res of the right lower extremity. There is a lobulated anechoic structure seen in the popliteal fossa measuring 4.1 cm x 3.9 cm x 1.8 c m which does not demonstrated flow on color flow evaluation is likely related to a Mehta's cyst. There is a palpable abnormality with ecchymosis involving the lateral aspect of the thigh. Limited so nographic evaluation of this region demonstrates an area of heterogeneity. Color flow evaluation does not demonstrate flow in this region, and this area grossly measures 2.3 cm x 1.9 cm. A few of th e provided images suggest a serpiginous tubular structures which could just represent vessels. This may represent a hematoma versus a hematoma with adjacent thrombosed superficial veins. Follow-up eval uation is recommended to ensure resolution. IMPRESSION: 1. No evidence of a deep vein thrombosis in the visualized deep venous structures right lower extremi ty. 2. Heterogeneous masslike appearing structure lateral right thigh subcutaneous soft tissues. No flow is seen on color flow evaluation. As stated above, some images suggest tubular serpiginous structures. Findings could be related to ill-defined hematoma in this region or possibly hematoma wit h adjacent thrombosed superficial veins. Follow-up evaluation is recommended to ensure resolution. 3. Mehta's cyst.
[2019-10-18 19:48] LABS: INR-International Normal Ratio 3.3; PTT 59.5 sec (22.9-36.1); Prothrombin Time 33.5 sec (12.0-14.7)
[2019-10-18 20:29] LABS: BHCG - Serum Negative (NEGATIVE); Pregs Control Background? CLEAR/WHITE (CLR/WHITE); Pregs Control Bar Appear? YES (CONTROL BAR)
[2019-10-18] MEDS ORDERED: Potassium Chloride 20 MEQ TAB ONE (20:41)
--- NOTE | 2019-10-18 21:34 | CT ---
CT OF THE ABDOMEN AND PELVIS WITH IV CONTRAST: 10/18/19 INDICATION: Generalized abdominal pain. COMPARISON: Prior exam dated 09/01/17. FINDINGS: There is enteric contrast within the region of the esophagus which may reflect dysmotility. There is worsening cirrhosis of the liver with prominent heterogeneity of the liver parenchyma. Under lying liver lesion cannot be entirely excluded. There are findings of portal hypertension with promin ent splenomegaly measuring up to 18 cm. There are prominent splenic varices. There is a left sided sp lenorenal shunt. There is mild ascites. There are scattered calcifications within the pancreatic head as well as portions of the pancreatic b jame which may reflect sequela of prior pancreatitis. The gallbladder is contracted. There is prominent wall thickening involving the colon suspicious for an underlying colitis. There is marked thickening and increased density involving the right iliacus muscle measuring 8.9 x 5 .7 cm suspicious for a retroperitoneal hematoma. The bladder is partially decompressed. The rectum and reproductive structures appear within normal li mits. IMPRESSION: 1. Worsening cirrhosis of the liver with portal hypertension. There is prominent heterogeneity o f the liver which may reflect perfusion anomalies due to the cirrhosis. Nonemergent follow-up CT or M IR of the abdomen utilizing liver mass protocol may be helpful to evaluate for any possible signs of underlying malignancy. 2. Mild ascites. 3. Increased density and mass-like prominence of the right iliacus musculature suspicious for a large intramuscular retroperitoneal hematoma. Follow-up imaging pre and postcontrast in 2 to 4 weeks may be helpful to exclude the presence of underlying mass. 4. Prominent wall thickening involving a large portion of the colon from the sigmoid, descending , transverse and ascending colon is suspicious for a colitis. Some of this may be related to the layo ent's cirrhosis (colon wall edema) and underdistention of the colon. 5. Findings suspicious for prior chronic pancreatitis. 6. Esophageal reflux versus dysmotility. 7. Small fluid containing umbilical hernia. POS: BH
--- NOTE | 2019-10-18 22:58 | PDOC.HHP ---
Hospitalist HPI - History of Present Illness Severe anemia/retroperitoneal hematoma History of Present Illness: Patient with PMH of alcoholic cirrhosis presents to ED for evaluation of right lower extremity pain and swelling. Per patient symptoms started a few days ago but only started significantly worsening on day of admission. She denies any trauma to the area although she does report "I frequently bump into things and sometimes fall." She is a long time alcoholic with clear evidence of advanced liver disease. Refers easy bruising/bleeding and frequent epistaxis. Currently refers feeling tired but denies any chest pain, shortness of breath, lightheadedness/dizziness. She continues to drink about 4-5 pints of Vodka per week. Initial ED evaluation reveals severe anemia of 3.4/10.6. INR elevated at 3.3. Elevated LFTs. Bill of 10.1. Hypokalemia of 2.9. She is borderline tachycardic and hypotensive but maintaining SBP >100s. CT abdomen shows large retroperitoneal hematoma, evidence of cirrhosis and chronic pancreatitis. Imaging to RLE shows right thigh subcutaneous hematoma. Hospitalist ROS - Review of Systems Constitutional: reports: weakness. denies: fever, chills Eyes: denies: pain, conjunctivae inflammation ENT: denies: ear pain, nose pain, nose discharge, nose congestion, mouth pain, throat pain Respiratory: denies: cough, shortness of breath, SOB with excertion Cardiovascular: denies: chest pain, palpitations, orthopnea Gastrointestinal: reports: other (Refers abdominal distention no pain). denies : nausea, vomiting, abdominal pain, hematochezia Genitourinary: denies: dysuria, frequency, incontinence, hematuria Musculoskeletal: reports: back pain, foot pain, other (Right lower extremity pain and swelling). denies: neck pain Neurological: reports: weakness, other (Some numbness to RLE). denies: numbness - Exam General Appearance: NAD, awake alert, ill appearing Eye: PERRL, scleral icterus ENT: normocephalic atraumatic, dry oral mucosa Neck: supple, JVD Heart: no murmur, no gallops Heart - other findings: Tachycardic Respiratory: CTAB, no rales, no ronchi Gastrointestinal: soft, no guarding, no rigidity, distended Gastrointestinal - other findings: Hepatosplenomegaly Extremities: no cyanosis, no clubbing Extremities - other findings: Right lower extremity/mid tigh and right flank hematoma Skin: normal turgor Neurological: cranial nerve grossly intact, no focal deficits Musculoskeletal: normal tone, generalized weakness, diffuse muscle atrophy Psychiatric: A&O x 3, oriented to person Hospitalist Results - Labs Result Diagrams: 10/18/19 23:54 10/18/19 18:18 Lab results: WBC 8.9 thou/uL (4.8-10.8) 10/18/19 18:18 Hgb 3.4 g/dL (12.0-16.0) L* 10/18/19 18:18 Hct 10.6 % (36.0-47.0) L* 10/18/19 18:18 MCV 116.0 fL (78.0-98.0) H 10/18/19 18:18 Plt Count 60 thou/uL (130-400) L 10/18/19 18:18 Neutrophils % 57.8 % (42.0-75.0) 10/18/19 18:18 Band Neuts % (Manual) 3 % (5-11) L 10/18/19 18:18 Sodium 132 mmol/L (136-145) L 10/18/19 18:18 Potassium 2.7 mmol/L (3.5-5.1) L* 10/18/19 18:18 Chloride 95 mmol/L (98-107) L 10/18/19 18:18 Carbon Dioxide 24 mmol/L (22-29) 10/18/19 18:18 BUN 11 mg/dL (7.0-18.7) 10/18/19 18:18 Creatinine 0.76 mg/dL (0.6-1.1) 10/18/19 18:18 Glucose 98 mg/dL (70-105) 10/18/19 18:18 Calcium 7.0 mg/dL (7.8-10.44) L 10/18/19 18:18 Total Bilirubin 10.1 mg/dL (0.2-1.2) H 10/18/19 18:18 AST 184 U/L (5-34) H 10/18/19 18:18 ALT 28 U/L (8-55) 10/18/19 18:18 Alkaline Phosphatase 368 U/L (40-110) H 10/18/19 18:18 Serum Total Protein 6.7 g/dL (6.0-8.3) 10/18/19 18:18 Albumin 2.3 g/dL (3.5-5.0) L 10/18/19 18:18 Lipase 40 U/L (8-78) 10/18/19 18:18 - Radiology Interpretation CT scan - abdomen Status: image reviewed by me (Right iliacus musculature suspicious for a large intramuscular retroperitoneal hematoma. Please review rest of imaging for other significant findings.) Hospitalist H&P A/P - Plan Plan: Problem List 1. Severe blood loss anemia 2. Retroperitoneal hematoma 3. Right lower extremity hematoma 4. Alcoholic liver cirrhosis with coagulopathy 5. Alcohol abuse Assessment and Plan 1. Severe blood loss anemia - admit patient to critical care - CT A/P with evidence of retroperitoneal hematoma - RLE with subcutaneous hematoma - denies any trauma to above areas - denies any recent GI bleed but does have hx of hematemesis - coagulopathy precipitated by liver disease playing a role - type and screen - transfuse 4 U PRBC & FFPs - IV vitamin K supplementation - Surgery and GI services being consulted 2. Retroperitoneal hematoma - unclear if any trauma precipitated event - transfuse 4 U PRBC & FFPs - IV vitamin K supplementation - will consider angiogram pending response to transfusions - surgical consultation requested to ED provider 3. Right lower extremity hematoma - unclear if any trauma precipitated event - transfuse 4 U PRBC & FFPs - IV vitamin K supplementation - surgical consultation requested to ED provider 4. Alcoholic liver cirrhosis with coagulopathy - chronic alcohol use of 4-5 pints per week - recheck LFTs, rajat, INR, screening hepatitis panel - will benefit from screening endoscopies - needs close outpatient follow up - IV vitamin K 10 mg x 1, consider continuing supplementation - hold off on diuretics and beta blockers until hemodynamics more stable - extensively counseled about alcohol rehab - GI has been consulted 5. Alcohol abuse - currently with no evidence of withdrawal - monitor closely DVT PPX: Contraindicated in setting of coagulopathy FULL CODE
[2019-10-18] MEDS ORDERED: Ondansetron PF 4 MG/2 ML Vial IVP PRN (23:22)
[2019-10-18] MEDS ORDERED: Phytonadione 10 MG/ML AMP ONE (23:32)
[2019-10-18] MEDS ORDERED: Phytonadione 10 MG/ML AMP SLOW IVP SCH (23:45)
[2019-10-19 00:06] LABS: #Lymphocytes 1.4 thou/uL (1.20-3.40); #Monocytes 0.7 thou/uL (0.11-0.59); #Neutrophils 4.4 thou/uL (1.40-6.50); %Basophils 0.3 % (0.0-1.0); %Eosinophils 0.6 % (0.0-10.0); %Lymphocytes 21.5 % (21.0-51.0); %Monocytes 10.8 % (0.0-10.0); %Neutrophils 66.7 % (42.0-75.0); Hemoglobin 5.2 g/dL (12.0-16.0); Mean Corpuscular HGB CONC 35.2 g/dL (32.0-36.0); Mean Corpuscular Hemoglobin 35.1 pg (27.0-31.0); Mean Corpuscular Volume 99.7 fL (78.0-98.0); Mean Platelet Volume 8.7 fL (7.4-10.4); Platelet Count 44 thou/uL (130-400); RBC Distribution Width 18.5 % (11.5-14.5); Red Blood Cell (RBC) Count 1.47 mill/uL (4.20-5.40); White Blood Cell (WBC) Count 6.6 thou/uL (4.8-10.8)
[2019-10-19 06:37] LABS: #Basophils 0.1 thou/uL (0.0-0.2); #Eosinphils 0.1 thou/uL (0.0-0.7); #Lymphocytes 1.9 thou/uL (1.20-3.40); #Neutrophils 5.7 thou/uL (1.40-6.50); %Basophils 0.6 % (0.0-1.0); %Eosinophils 0.6 % (0.0-10.0); %Lymphocytes 21.4 % (21.0-51.0); %Monocytes 11.5 % (0.0-10.0); %Neutrophils 65.8 % (42.0-75.0); Hemoglobin 7.3 g/dL (12.0-16.0); Mean Corpuscular HGB CONC 34.9 g/dL (32.0-36.0); Mean Corpuscular Hemoglobin 32.4 pg (27.0-31.0); Mean Corpuscular Volume 92.8 fL (78.0-98.0); Mean Platelet Volume 9.3 fL (7.4-10.4); Platelet Count 50 thou/uL (130-400); RBC Distribution Width 17.8 % (11.5-14.5); Red Blood Cell (RBC) Count 2.25 mill/uL (4.20-5.40); White Blood Cell (WBC) Count 8.7 thou/uL (4.8-10.8)
[2019-10-19 06:39] LABS: INR-International Normal Ratio 2.4; Prothrombin Time 25.8 sec (12.0-14.7)
[2019-10-19 06:56] LABS: Phosphorus 2.8 mg/dL (2.3-4.7)
[2019-10-19 06:59] LABS: ALT (SGPT) 28 U/L (8-55); AST (SGOT) 184 U/L (5-34); Albumin 2.4 g/dL (3.5-5.0); Alkaline Phosphatase 331 U/L (40-110); Anion Gap 13 mmol/L (10-20); BUN (Urea Nitrogen) 11 mg/dL (7.0-18.7); Bilirubin, Total 12.3 mg/dL (0.2-1.2); Calc. Creatinine Clearance 0 mL/min (70-130); Calcium 6.8 mg/dL (7.8-10.44); Carbon Dioxide 24 mmol/L (22-29); Chloride 99 mmol/L (98-107); Estimated GFR-MDRD Greater than 90; Globulin 4.4 g/dL (2.4-3.5); Glucose 83 mg/dL (70-105); Potassium 3.3 mmol/L (3.5-5.1); Protein, Total 6.8 g/dL (6.0-8.3); Sodium 133 mmol/L (136-145)
[2019-10-19 07:00] LABS: CRP (Inflammatory) 3.52 mg/dL (= or < 0.5); Magnesium 1.2 mg/dL (1.6-2.6)
[2019-10-19 07:23] LABS: Vitamin B12 1486 pg/mL (211-911)
[2019-10-19 07:31] LABS: HBCM Index 0.11 S/CO (0-0.79); HBSAg Index 0.25 S/CO (0-0.99); Hep A IgM AB Non-Reactive (NonReactive); Hep A IgM S/CO 0.28 S/CO (0-0.79); Hep B Surf Ag Non-Reactive S/CO (NonReactive); Hep C IgG Ab Non-Reactive (NonReactive); Hep C Index 0.32 S/CO (0-0.79); Hepatitis B Core IgM Abs Non-Reactive (NonReactive)
[2019-10-19] MEDS ORDERED: Potassium Citrate 10 MEQ TAB PO SCH ×2 (09:00→11:30)
[2019-10-19] MEDS ORDERED: Magnesium 2 GM/50 ML 2 GM in Premix Bag 1 BAG IVPB SCH (09:00)
[2019-10-19] MEDS ORDERED: Cyanocobalamin (Vitamin B-12) 1,000 MCG TAB PO SCH (09:00)
[2019-10-19] MEDS: Fentanyl 100 MCG/2 ML VIAL SLOW IVP PRN (11:15)
[2019-10-19] MEDS: Sodium Chloride 0.9% 1,000 ML IV SCH ×3 (11:17→23:07)
[2019-10-19 11:19] LABS: Base Excess-Venous 1.8 mmol/L (-2.0 to 3.0); Bicarbonate (HCO3v) 24.3 mmol/L (22.0-28.0); CO2 Tension (PvCO2) 25.3 mmHg (40.0-50.0); vO2 Saturation-calc 64.5 % (60.0-85.0)
[2019-10-19 11:20] LABS: Hematocrit Less than 10.0 % (36.0-47.0)
[2019-10-19 11:21] LABS: Calcium, Ionized 0.88 mmol/L (See Comments:); Chloride 98 mmol/L (98-107); Potassium 2.6 mmol/L (3.5-5.1); Sodium 136 mmol/L (138-145)
[2019-10-19] MEDS: Thiamine 100 MG TAB PO SCH (11:24)
[2019-10-19] MEDS: Multivitamin W/ Minerals 1 TAB PO SCH (11:24)
[2019-10-19] MEDS: Folic Acid 1 MG TAB PO SCH (11:25)
[2019-10-19] MEDS ORDERED: Thiamine HCl 200 MG/2 ML VIAL IM SCH (12:00)
[2019-10-19] MEDS ORDERED: Diazepam 5 MG TAB PO SCH (12:00)
[2019-10-19 14:04] LABS: Hemoglobin 7.1 g/dL (12.0-16.0)
[2019-10-19 14:21] VITALS: BMI 20.9
--- NOTE | 2019-10-19 17:12 | PDOC.HOSPP ---
- Subjective Encounter Date: 10/19/19 Encounter Time: 12:10 Subjective: pt seen and examined, she has dried blood in her mouth, hgb at 7.3 after 5 units of prbc. pt has not had any paracentesis in the past, says abd distention is less than y 'day, R. thigh hematoma - pain on the sides. No sux'l intervention for retroperitoneal hematoma. FI c/s pending. on ASE protocol for alsochol use. talk to RN. - Objective Vital Signs & Weight: Vital Signs (12 hours) Temp Pulse Ox 10/19/19 15:10 97 10/19/19 15:00 100.5 F H 10/19/19 11:15 99.8 F H 10/19/19 10:30 98.7 F 98 Weight Weight 138 lb 0.15 oz Most Recent Monitor Data Heart Rate from ECG 115 NIBP 97/52 NIBP BP-Mean 67 Respiration from ECG 27 SpO2 97 Result Diagrams: 10/19/19 13:57 10/19/19 06:21 Hospitalist ROS - Medication Medications: Active Medications Generic Name Dose Route Start Last Admin Trade Name Freq PRN Reason Stop Dose Admin Cyanocobalamin 1,000 mcg 10/19/19 09:00 10/19/19 11:25 Vitamin B-12 PO 1,000 mcg DAILY FRANCESCA Administration Fentanyl 50 mcg 10/19/19 09:21 10/19/19 11:15 Sublimaze SLOW IVP 50 mcg Q6H PRN Administration Moderate to Severe Pain (6-10) Folic Acid 1 mg 10/19/19 09:00 10/19/19 11:25 Folvite PO 1 mg DAILY FRANCESCA Administration Sodium Chloride 1,000 mls @ 80 mls/hr 10/18/19 23:30 10/19/19 11:38 Normal Saline 0.9% IV Not Given .[id number] FRANCESCA Iron/Minerals/Multivitamins 1 tab 10/19/19 09:00 10/19/19 11:24 Theragran M PO 1 tab DAILY FRANCESCA Administration Thiamine HCl 100 mg 10/19/19 09:00 10/19/19 11:24 Thiamine PO 100 mg DAILY FRANCESCA Administration - Exam General Appearance: NAD, awake alert Eye: PERRL ENT: normocephalic atraumatic Neck: supple Heart: RRR Respiratory: CTAB, normal chest expansion Gastrointestinal: soft, distended Neurological: no focal deficits Psychiatric: A&O x 3 Hosp A/P - Plan note edited acc. to today's plan Severe blood loss anemia Retroperitoneal hematoma . Right thigh hematoma - CT A/P with evidence of retroperitoneal hematoma - RLE with subcutaneous hematoma - informed RN with warm compress. - denies any recent GI bleed but does have hx of hematemesis--no family hx of bleeding d/o[checked w.. pt] - coagulopathy precipitated by liver disease playing a role -no sux intervention - GI c/s pending - NPO until GI ahs seen her. - IV vitamin K supplementation - Surgery and GI services being consulted -s/p 5 units of prbc. -- been told no FFP given. 4. Alcoholic liver cirrhosis with coagulopathy - pt has not had any paracentesis in the past, - routine OUTPT GI followup 5. Alcohol abuse - on ASE protocol DVT PPX: Contraindicated in setting of coagulopathy FULL CODE
[2019-10-19] MEDS: Diazepam 5 MG TAB PO PRN ×2 (17:18→20:47)
[2019-10-19] MEDS: Acetaminophen 325 MG TAB PO PRN (17:18)
[2019-10-19] MEDS ORDERED: Phytonadione 10 MG/ML AMP PO SCH (21:15)
[2019-10-19 21:52] LABS: Hemoglobin 6.8 g/dL (12.0-16.0)
--- NOTE | 2019-10-20 01:02 | CON ---
DATE OF CONSULTATION: 10/19/2019 REASON FOR CONSULT: Retroperitoneal hematoma. HISTORY OF PRESENT ILLNESS: This is a 39-year-old female, who presented to the emergency room for evaluation of the right lower extremity pain and swelling, also reports easy bruising and bleeding with frequent epistaxis. The patient denies any trauma, but reports she occasionally bumps into things and sometimes falls. The patient has a past medical history of alcoholic cirrhosis. The patient drinks approximately 4 to 5 pints of vodka a week. The patient reports passing flatus and having bowel movements. The patient currently denies any abdominal pain. The patient denies any groin pain. The patient's abdominal CT was reviewed by Dr. Mishra. RECOMMENDATION: No surgical intervention. Avoid anticoagulation until hemostases. Also recommend clear liquid diet and advance as tolerated. Surgery Services will sign off at this time. Please let us know if anything else is needed. The patient was examined by Dr. Mishra in the I[facility]. Job ID: [id number]
--- NOTE | 2019-10-20 03:04 | CON ---
DATE OF CONSULTATION: 10/19/2019 REASON FOR CONSULTATION: Significant anemia, cirrhosis of the liver. CONSULTING PROVIDER: Jesus Sprague MD HISTORY OF PRESENT ILLNESS: The patient is a 39-year-old female with past medical history of chronic pancreatitis and alcoholic cirrhosis, presenting with increased right lower extremity pain, easy bruising and significant anemia. The patient states she was in her usual state of health until approximately 3 to 4 days ago when she began to have increasing right lower extremity pain characterized as a sharp stabbing type sensation, was centered around her right hip and would extend down the thigh. This was also associated with increased easy bruising with a large bruise/ecchymosis located superior to the greater trochanter on the right side as well. With the increased right lower extremity pain, it prompted her to come to the [facility] ER for further evaluation and on evaluation in the ER, she was noted to have a significantly decreased H and H with a hemoglobin on arrival of 3.4. Upon further evaluation of her labs and imaging, she was noted to have cirrhotic morphology on imaging and when asked about this, did state that she had been diagnosed with cirrhosis in the past. Otherwise, she denies any nausea, vomiting, fevers, chills, abdominal pain, hematemesis, melena, hematochezia, encephalopathy, abdominal distention, lower extremity edema. Of note, she also endorses scleral icterus, but has been gradual in its onset that was only noticed by family. REVIEW OF SYSTEMS: A 10-category review of systems was obtained with all responses negative except for the pertinent positives as listed in HPI. PAST MEDICAL HISTORY: As per HPI. PAST SURGICAL HISTORY: None. FAMILY HISTORY: Denies any GI malignancies. SOCIAL HISTORY: Has been drinking approximately one pint of vodka every 1 to 2 days and has been doing so for years. Smokes approximately 1/2 pack per day, but denies any illicit drug use. OUTPATIENT MEDICATIONS: None. ALLERGIES: NO KNOWN DRUG ALLERGIES. PHYSICAL EXAMINATION: VITAL SIGNS: Temperature 98.7, pulse 105, blood pressure 104/78, respiratory rate 14, and saturating 94% on room air. GENERAL: The patient was lying in bed, in no acute distress. Alert and oriented x4. HEENT: Normocephalic and atraumatic. NECK: Supple. No JVD noted. Positive scleral icterus. CARDIOVASCULAR: Tachycardic rate, but regular rhythm with no discernible murmurs, gallops, or rubs. RESPIRATORY: Clear to auscultation bilaterally with no discernible wheezes or rales. ABDOMEN: Mild to moderate abdominal distention with a positive umbilical hernia. Normoactive bowel sounds. Soft. Nontender to palpation. EXTREMITIES: A large ecchymosis was noted along the superior aspect of the right hip. However, no cyanosis, clubbing, or edema was noted in the bilateral lower extremities. LABORATORY DATA: CBC with a white blood cell count of 8.7, hemoglobin 7.3, hematocrit 20.9, and platelets 50. INR 2.1. Chemistry with a sodium of 133, potassium 3.3, chloride 99, CO2 of 24, BUN 11, creatinine 0.59, glucose 83, AST 184, ALT 28, alkaline phosphatase 331, total bilirubin 12.3, and albumin 2.4. Acute hepatitis panel negative. MELD sodium score calculated at 28. IMAGING DATA: A CT of the abdomen and pelvis was obtained on October 18, 2019, which showed liver cirrhosis with sequelae of portal hypertension including splenomegaly. There was prominent splenic varices in addition to the presence of mild ascites. Calcifications were seen in the pancreatic head consistent with chronic pancreatitis. Prominent wall thickening was seen of the entire colon, but no evidence of fat stranding. There was a possible retroperitoneal hematoma. Also seen as well as the presence of an umbilical hernia. ASSESSMENT AND PLAN: The patient is a 39-year-old female with chronic pancreatitis and alcoholic cirrhosis complicated by splenomegaly, presenting with significant anemia and right lower extremity pain. Anemia: The patient is presenting with a significant decrease in her hemoglobin and hematocrit with a hemoglobin of 3.4 on admission. However, when questioning the patient, she denied any overt evidence of shortness of breath, increased fatigue , or inability to maintain ADLs, but rather reiterated that the presenting symptom that brought her to the ER in the first place was her right lower extremity pain. She is now status post infusion of 4 units of packed red blood cells in addition to 1 unit of fresh frozen plasma in an attempt to correct her significant anemia. At this time, she denies any evidence of overt GI bleeding including hematemesis, melena , or hematochezia. However, with the presence of a large retroperitoneal hematoma, she could have continued bleeding into this hematoma that may ultimately require surgical intervention in order to stop the bleeding (however, the patient would have a high risk of complications for any intraabdominal procedure). At this time, one of the more likely etiologies for her significant anemia given her macrocytic anemia noted on admission would be direct inhibition of the bone marrow with ingestion of high amounts of alcohol with direct inhibition of the bone marrow, it could theoretically suppress her hemoglobin, hematocrit, and platelet count, although with her concurrent diagnosis of cirrhosis, could also generate thrombocytopenia. Gastrointestinal bleeding cannot be ruled out at this time, but it is less likely in terms of differential. Recommendations; 1. Would continue to trend her H and H and transfuse as necessary to maintain an H and H of 11/20. 2. Continue to monitor clinically for signs of active gastrointestinal bleeding. 3. Strongly encourage alcohol cessation as it could be contributing to her current anemia/thrombocytopenia. 4. Would consider obtaining fibrinogen or fibrinogen degradation products and/or haptoglobin for possible hemolytic anemia. Alcoholic cirrhosis: The patient is presenting with a history of hepatomegaly and hepatic steatosis in 2018, which is now progressed to alcoholic cirrhosis based on cirrhotic morphology on imaging and continued alcohol consumption. At this time , she is presenting with decompensated disease given the mild amount of ascites noted on imaging studies. However, she denies any episodes of GI bleeding, jaundice, or lower extremity edema. Currently calculated with a MELD score of 28 and a Child-Clay classification C, which puts her 90 day mortality at approximately 30 % and risk of complication from an intraabdominal surgery at 50%. Given her elevated INR at this time, it is unclear if this is related to her cirrhosis of the liver and worsening hepatic function or it is related to significant dietary malnutrition with lack of vitamin K that could contribute to an elevated INR. Recommendations; 1. Would place the patient on an alcohol withdrawal protocol given her increased use of alcohol in the past. 2. Would place the patient on oral vitamin K 5 mg x1 for possible vitamin K deficiency contributing to anticoagulation. 3. Would continue to trend her LFTs and INR daily. 4. Continued monitoring of her hepatic function. 5. We would hold on esophagogastroduodenoscopy/endoscopic evaluation at this time given lack of evidence of overt gastrointestinal bleeding and macrocytic anemia, which is not indicative of chronic gastrointestinal blood loss. However, the patient will need screening esophagogastroduodenoscopy as an outpatient if she survives this admission. We will continue to follow. Please call with any questions. Job ID: [id number] [facility] CENTERLeann
[2019-10-20 03:55] LABS: #Basophils 0.1 thou/uL (0.0-0.2); #Eosinphils 0.1 thou/uL (0.0-0.7); #Lymphocytes 1.8 thou/uL (1.20-3.40); #Monocytes 0.7 thou/uL (0.11-0.59); #Neutrophils 7.5 thou/uL (1.40-6.50); %Basophils 0.6 % (0.0-1.0); %Eosinophils 0.9 % (0.0-10.0); %Lymphocytes 17.6 % (21.0-51.0); %Monocytes 7.2 % (0.0-10.0); %Neutrophils 73.7 % (42.0-75.0); Hemoglobin 8.2 g/dL (12.0-16.0); Mean Corpuscular HGB CONC 34.9 g/dL (32.0-36.0); Mean Corpuscular Hemoglobin 32.7 pg (27.0-31.0); Mean Corpuscular Volume 93.6 fL (78.0-98.0); Mean Platelet Volume 8.9 fL (7.4-10.4); Platelet Count 51 thou/uL (130-400); RBC Distribution Width 18.6 % (11.5-14.5); Red Blood Cell (RBC) Count 2.51 mill/uL (4.20-5.40); White Blood Cell (WBC) Count 10.2 thou/uL (4.8-10.8)
[2019-10-20 04:02] LABS: INR-International Normal Ratio 2.1; Prothrombin Time 23.1 sec (12.0-14.7)
[2019-10-20 04:16] LABS: ALT (SGPT) 28 U/L (8-55); AST (SGOT) 172 U/L (5-34); Albumin 2.4 g/dL (3.5-5.0); Alkaline Phosphatase 308 U/L (40-110); Anion Gap 14 mmol/L (10-20); BUN (Urea Nitrogen) 12 mg/dL (7.0-18.7); Bilirubin, Total 13.7 mg/dL (0.2-1.2); Calc. Creatinine Clearance 136 mL/min (70-130); Calcium 6.9 mg/dL (7.8-10.44); Carbon Dioxide 23 mmol/L (22-29); Chloride 98 mmol/L (98-107); Estimated GFR-MDRD Greater than 90; Globulin 4.4 g/dL (2.4-3.5); Glucose 85 mg/dL (70-105); Magnesium 1.8 mg/dL (1.6-2.6); Potassium 3.3 mmol/L (3.5-5.1); Protein, Total 6.8 g/dL (6.0-8.3); Sodium 132 mmol/L (136-145)
[2019-10-20 06:31] LABS: Hemoglobin 8.5 g/dL (12.0-16.0)
[2019-10-20] MEDS ORDERED: Multivitamin W/ Minerals 1 TAB PO SCH (09:00)
[2019-10-20] MEDS: Thiamine 100 MG TAB PO SCH ×2 (10:13→10:14)
[2019-10-20] MEDS: Multivitamin W/ Minerals 1 TAB PO SCH (10:13)
[2019-10-20] MEDS: Folic Acid 1 MG TAB PO SCH ×2 (10:13→10:14)
[2019-10-20] MEDS: Magnesium Oxide 400 MG TAB PO SCH (10:13)
[2019-10-20] MEDS: Sodium Chloride 0.9% 1,000 ML IV SCH (10:14)
[2019-10-20] MEDS ORDERED: Potassium Citrate 10 MEQ TAB PO SCH (10:15)
[2019-10-20] MEDS: Diazepam 5 MG TAB PO PRN ×2 (10:23→14:10)
[2019-10-20] MEDS: Fentanyl 100 MCG/2 ML VIAL SLOW IVP PRN ×2 (10:27→22:41)
--- NOTE | 2019-10-20 13:47 | PDOC.HOSPP ---
- Subjective Encounter Date: 10/20/19 Encounter Time: 10:40 Subjective: pt is sleeping, has no acute c/o, no EGD for now, hgb 8.5. on ASC protocol for alc wdl sxs, she had temp this am. - Objective Vital Signs & Weight: Vital Signs (12 hours) Temp Resp Pulse Ox 10/20/19 11:00 100.2 F H 10/20/19 07:32 98 10/20/19 07:00 100.4 F H 21 H 10/20/19 04:03 21 H 10/20/19 04:01 98.7 F 10/20/19 03:37 98.8 F Weight Admit Weight 138 lb 0.15 oz Weight 138 lb 0.15 oz Most Recent Monitor Data Heart Rate from ECG 119 NIBP 99/51 NIBP BP-Mean 67 Respiration from ECG 31 SpO2 97 I&O: 10/19/19 10/20/19 10/21/19 06:59 06:59 06:59 Intake Total 1374 Output Total 570 Balance 804 Result Diagrams: 10/20/19 06:10 10/20/19 03:07 Hospitalist ROS - Medication Medications: Active Medications Generic Name Dose Route Start Last Admin Trade Name Freq PRN Reason Stop Dose Admin Acetaminophen 650 mg 10/19/19 11:58 10/19/19 17:18 Tylenol PO 650 mg Q6H PRN Administration Headache/Fever or Pain Diazepam 5 mg 10/20/19 04:00 10/20/19 10:23 Valium PO 5 mg Q4H PRN Administration FOR ASE 10 OR GREATER Fentanyl 25 mcg 10/19/19 09:21 10/20/19 10:27 Sublimaze SLOW IVP 25 mcg Q6H PRN Administration Mild Pain (1-3) Fentanyl 50 mcg 10/19/19 09:21 10/19/19 11:15 Sublimaze SLOW IVP 50 mcg Q6H PRN Administration Moderate to Severe Pain (6-10) Folic Acid 1 mg 10/19/19 09:00 10/20/19 10:13 Folvite PO 1 mg DAILY FRANCESCA Administration Folic Acid 1 mg 10/20/19 09:00 10/20/19 10:14 Folvite PO Not Given DAILY FRANCESCA Sodium Chloride 1,000 mls @ 100 mls/hr 10/18/19 23:30 10/20/19 10:14 Normal Saline 0.9% IV 1,000 mls .Q10H FRANCESCA Administration Iron/Minerals/Multivitamins 1 tab 10/19/19 09:00 10/20/19 10:13 Theragran M PO 1 tab DAILY FRANCESCA Administration Iron/Minerals/Multivitamins 1 tab 10/20/19 09:00 10/20/19 10:14 Theragran M PO Not Given DAILY FRANCESCA Magnesium Oxide 400 mg 10/20/19 09:00 10/20/19 10:13 Magnesium Oxide PO 400 mg DAILY FRANCESCA Administration Pneumococcal Polyvalent Vaccine 0.5 ml 10/20/19 16:00 10/20/19 10:30 Pneumovax 23 IM 10/20/19 16:01 0.5 ml .ONCE ONE Administration Thiamine HCl 100 mg 10/19/19 09:00 10/20/19 10:13 Thiamine PO 100 mg DAILY FRANCESCA Administration Thiamine HCl 100 mg 10/20/19 09:00 10/20/19 10:14 Thiamine PO Not Given DAILY FRANCESCA - Exam General Appearance: NAD Eye: PERRL ENT: normocephalic atraumatic Neck: supple Heart: RRR, normal peripheral pulses Respiratory: CTAB, normal chest expansion Gastrointestinal: soft, normal bowel sounds, no guarding Neurological: no focal deficits Psychiatric: normal affect, normal behavior, A&O x 3 Hosp A/P - Plan note edited acc. to today's plan Severe blood loss anemia Retroperitoneal hematoma . Right thigh hematoma - CT A/P with evidence of retroperitoneal hematoma - RLE with subcutaneous hematoma - informed RN with warm compress. - denies any recent GI bleed but does have hx of hematemesis--no family hx of bleeding d/o[checked w.. pt] - coagulopathy precipitated by liver disease playing a role -no sux intervention - GI c/s pending - NPO until GI ahs seen her. - IV vitamin K supplementation - Surgery and GI services on board, -- no sux or EGD -s/p 5 units of prbc. -- been told no FFP given. 4. Alcoholic liver cirrhosis with coagulopathy - pt has not had any paracentesis in the past, - routine OUTPT GI followup 5. Alcohol abuse - on ASE protocol macrocytic anemia thrombocytopenia --d/t alc..abuse. febrile episode on -could be d/t inflammatory w.. hematoma - ordered bl vidal and ctx, given the risk for aspiration, no high wbcs -watch for high wbcs Hgb stable - daily cbc -- dc H & h. EGD as OP, if indicated then. DVT PPX: Contraindicated in setting of coagulopathy FULL CODE
[2019-10-20] MEDS: cefTRIAXone\\ROCEPHIN 1 GM in Sodium Chloride 0.9% 100 ML IVPB SCH (14:11)
[2019-10-20] MEDS: Acetaminophen 325 MG TAB PO PRN (14:12)
--- NOTE | 2019-10-20 17:29 | PRG ---
DATE OF SERVICE: 10/20/2019 REASON FOR CONSULTATION: Anemia, cirrhosis of the liver. SUBJECTIVE: Per nursing staff, there was no acute events or problems overnight, although the patient today still continued to complain of increased right hip pain as well as back pain. Otherwise, she denied any episodes of nausea, vomiting, fevers, chills, abdominal pain, hematemesis, melena, hematochezia, dysphagia, or odynophagia. OBJECTIVE: VITAL SIGNS: Temperature 100.2, pulse 77, blood pressure 103/66, respiratory rate 24, saturating 92% on room air. GENERAL: The patient was lying in bed, in no acute distress, but somnolent with her responses. Alert and oriented x3. CARDIOVASCULAR: Tachycardic rate, but regular rhythm. RESPIRATORY: Clear to auscultation bilaterally. ABDOMEN: Mild abdominal distention with positive umbilical hernia. Normoactive bowel sounds. Soft, nontender to palpation. EXTREMITIES: A large ecchymosis was noted along the superior aspect of the right hip near the greater trochanter. However, no cyanosis, clubbing, or edema was noted in the bilateral lower extremities. LABORATORY DATA: CBC with a white blood cell count of 10.2, hemoglobin 8.5, hematocrit 24.3, platelets 51. INR 2.1. Chemistry with a sodium of 132, potassium 3.3, chloride 98, CO2 of 23, BUN 12, creatinine 0.56, glucose 85. AST 172, ALT 28, alkaline phosphatase 308, total bilirubin 13.7 with a calculated MELD score of 28. IMAGING DATA: No current GI imaging is available for review. ASSESSMENT AND PLAN: The patient is a 39-year-old female with past medical history of chronic pancreatitis and alcoholic cirrhosis complicated by splenomegaly, presenting with significant anemia and right lower extremity pain. Anemia: The patient initially presented with a significantly decreased hemoglobin and hematocrit with her hemoglobin 3.4 on admission. However, when questioning the patient, she denied any overt evidence of GI bleeding, but only described episodes of increased or easy bruising as noted on her right lower extremity and on her back. She is now status post infusion of 4 units of PRBCs in addition to 1 unit of fresh frozen plasma with her H and H stable at this time. She denies any evidence of overt GI bleeding including hematemesis, melena, or hematochezia, and with stabilization in her H and H, it is less likely indicative of GI bleeding contributing to her significant anemia on admission. Instead, the patient also has the presence of a large retroperitoneal hematoma that is most likely formed as a result of mild trauma in light of thrombocytopenia and significant coagulopathy. Also contributing to the issue is the potential direct inhibition of the bone marrow with chronic alcohol use, thereby suppressing her production of red blood cells. Recommendations: 1. Would continue to trend her H and H and transfuse as necessary to maintain an H and H of 7/21. 2. Continue to monitor clinically for signs of active GI bleeding. 3. Strongly encouraged alcohol cessation. 4. We will consider obtaining fibrinogen degradation products as part of possible sepsis, especially in light of elevated body temperatures in the last 24 hours. Alcoholic cirrhosis: The patient is presenting with a history of alcoholic cirrhosis based on cirrhotic morphology and thrombocytopenia. At this time, she is presenting with decompensated disease given the mild amount of ascites noted on imaging studies as well as her hyperbilirubinemia indicative of significant liver dysfunction. Currently, her calculated MELD score is 28 with a Child-Caly classification C, which puts her 90 day mortality at approximately 30%. Given the one pint of vodka that the patient was drinking almost daily, she is also at risk for vitamin and mineral deficiencies including vitamin K, which could contribute to her elevated INR. Recommendations: 1. Would continue the patient on an alcohol withdrawal protocol. 2. We will place the patient on daily multivitamin as part of probable nutritional deficiency. 3. Continue to trend her LFTs and INR daily as they can be indicative of worsening liver function/impending liver failure. 4. We will hold off on endoscopic management of her anemia at this time given lack of overt GI bleeding and her poor hepatic function. 5. She does have labs indicative of a mild alcoholic hepatitis, but in a patient who is running fevers, the use of prednisolone with immunosuppression would be ill-advised. She is not currently exhibiting any evidence of hepatorenal syndrome that would necessitate octreotide, albumin, or midodrine administration. 6. At this time, would concentrate primarily on optimizing nutrition maintaining normovolemic status and abstinence from alcohol. 7. I would have low threshold to transfer the patient to a tertiary care facility if her MELD score starts to increase for evaluation prior to liver transplantation. We will continue to follow. Please call with any questions. Job ID: [id number]
[2019-10-21] MEDS: Sodium Chloride 0.9% 1,000 ML IV SCH ×3 (01:20→16:41)
[2019-10-21] MEDS: Magnesium Oxide 400 MG TAB PO SCH (08:46)
[2019-10-21] MEDS: Folic Acid 1 MG TAB PO SCH (08:46)
[2019-10-21] MEDS: Multivitamin W/ Minerals 1 TAB PO SCH (08:46)
[2019-10-21] MEDS: Thiamine 100 MG TAB PO SCH (08:46)
[2019-10-21 09:36] LABS: Hemoglobin 6.9 g/dL (12.0-16.0); Mean Corpuscular HGB CONC 34.2 g/dL (32.0-36.0); Mean Corpuscular Volume 99.2 fL (78.0-98.0); Mean Platelet Volume 8.6 fL (7.4-10.4); Platelet Count 59 thou/uL (130-400); Red Blood Cell (RBC) Count 2.03 mill/uL (4.20-5.40); White Blood Cell (WBC) Count 8.6 thou/uL (4.8-10.8)
[2019-10-21 09:37] LABS: Anisocytosis MODERATE=16-30 cells (100X) (0-5/hpf); Band 2 % (5-11); Lymphocytes 17 % (21-51); MDiff Complete? YES; Monocytes 4 % (0-10); Neutrophil 77 % (42-75); Platelet Morphology Comment Appears Decreased; Polychromasia SLIGHT = 2-3 cells (100X) (0-2/hpf)
[2019-10-21 09:57] LABS: Prothrombin Time 22.8 sec (12.0-14.7)
[2019-10-21 10:00] LABS: Hemoglobin 6.3 g/dL (12.0-16.0); Mean Corpuscular HGB CONC 33.3 g/dL (32.0-36.0); Mean Corpuscular Hemoglobin 33.5 pg (27.0-31.0); Mean Platelet Volume 9.1 fL (7.4-10.4); Platelet Count 59 thou/uL (130-400); RBC Distribution Width 24.6 % (11.5-14.5); Red Blood Cell (RBC) Count 1.89 mill/uL (4.20-5.40); White Blood Cell (WBC) Count 8.4 thou/uL (4.8-10.8)
[2019-10-21 10:18] LABS: ALT (SGPT) 25 U/L (8-55); AST (SGOT) 128 U/L (5-34); Albumin 1.9 g/dL (3.5-5.0); Alkaline Phosphatase 240 U/L (40-110); Anion Gap 11 mmol/L (10-20); BUN (Urea Nitrogen) 9 mg/dL (7.0-18.7); Bilirubin, Total 11.7 mg/dL (0.2-1.2); Calc. Creatinine Clearance 159 mL/min (70-130); Calcium 6.5 mg/dL (7.8-10.44); Carbon Dioxide 22 mmol/L (22-29); Chloride 98 mmol/L (98-107); Estimated GFR-MDRD Greater than 90; Globulin 3.9 g/dL (2.4-3.5); Glucose 140 mg/dL (70-105); Potassium 3.3 mmol/L (3.5-5.1); Protein, Total 5.8 g/dL (6.0-8.3); Sodium 128 mmol/L (136-145)
[2019-10-21 10:30] LABS: Band 10 % (5-11); Lymphocytes 12 % (21-51); MDiff Complete? YES; Metamyelocyte 3 % (0-0); Monocytes 8 % (0-10); Neutrophil 65 % (42-75); Nucleated RBC 1 % (0); Reactive Lymphocytes 2 % (0-10)
--- NOTE | 2019-10-21 14:32 | EKG ---
Test Reason : Blood Pressure : / mmHG Vent. Rate : 115 BPM Atrial Rate : 115 BPM P-R Int : 132 ms QRS Dur : 080 ms QT Int : 368 ms P-R-T Axes : 025 039 041 degrees QTc Int : 509 ms Sinus tachycardia Cannot rule out Anterior infarct , age undetermined Abnormal ECG Confirmed by VISHAL FREITAS ([id number]), general expeditor KELLI BENJAMIN ([id number]) on 10/21/2019 2:31:44 PM Referred By: Confirmed By:VISHAL Noriega
--- NOTE | 2019-10-21 15:41 | PRG ---
DATE OF SERVICE: 10/21/2019 REASON FOR CONSULTATION: Anemia, cirrhosis of the liver. SUBJECTIVE: There were no acute events or problems overnight. Today, the patient continues to feel just increasing fatigue and tiredness, sleeping for the greater portion of the day. Otherwise, she currently denies any nausea, vomiting, fevers, chills, abdominal pain, hematemesis, melena, hematochezia, dysphagia, or odynophagia. She has had approximately three semi-solid bowel movements within the last 24 hours with no blood noted during those episodes of defecation. OBJECTIVE: VITAL SIGNS: Temperature 98.3, pulse 125, blood pressure 115/69, respiratory rate 16, and saturating 94% on room air. GENERAL: The patient was lying in bed, in no acute distress, but somnolent with her responses. Alert and oriented x3. CARDIOVASCULAR: Tachycardic rate, but regular rhythm. RESPIRATORY: Clear to auscultation bilaterally. ABDOMEN: Mild abdominal distention with a positive umbilical hernia. Normoactive bowel sounds. Soft, nontender to palpation. EXTREMITIES: A large ecchymosis was noted along the superior aspect of the right hip near the greater trochanter. No other cyanosis, clubbing, or edema is noted in the bilateral lower extremities. LABORATORY DATA: CBC with a white blood cell count of 8.4, hemoglobin 6.3, hematocrit 18.9, platelets 59. INR 2.0. Chemistry with a sodium of 128, potassium 3.3, chloride 98, CO2 of 22, BUN 9, creatinine 0.48, glucose 140, AST 128, ALT 25, alkaline phosphatase 240, total bilirubin 11.7. Calculated MELD score was 28. IMAGING DATA: No current GI imaging is available for review. ASSESSMENT AND PLAN: The patient is a 39-year-old female with past medical history of chronic pancreatitis and alcoholic cirrhosis complicated by only splenomegaly, presenting with significant anemia and right lower extremity pain. 1. Anemia. The patient initially presented with a decreased hemoglobin and hematocrit with her hemoglobin 3.4 on admission. She does not describe any evidence of overt GI bleeding including lack of hematemesis, melena, or hematochezia. She does have symptoms of easy bruising and has had some bleeding along her gums and nosebleeds, but none of them have been severe to generate hemoglobin low. She is now status post 4 units of PRBCs and had a stable hemoglobin and hematocrit until today when she was noted to have a drop in her hemoglobin from 8.5 to 6.3 (confirmed via two separate CBCs). At this time given her history of cirrhosis and GI bleed, is within the differential, but with the loss of 2 units of blood, I would expect to see some sort of overt GI bleeding; however, she also does have a large retroperitoneal hematoma in the right hip, which could be actively being bled into and generate the same clinical situation/picture. Recommendations: a. We would continue to trend her hemoglobin and hematocrit and transfuse as necessary to maintain a hemoglobin and hematocrit of 7/21. b. Continue to monitor clinically for signs of active GI bleeding. c. Strongly encourage alcohol cessation as it has direct inhibitory capabilities on the bone marrow. d. We would obtain a tagged red cell scan for further localization of her bleeding source whether be GI or retroperitoneal. 2. Alcoholic cirrhosis. The patient is presenting with a history of alcoholic cirrhosis based on cirrhotic morphology, thrombocytopenia and elevated INR consistent with a diagnosis, currently presenting with decompensated disease with new onset ascites. However, it is a small amount and does not seem to be able to be tapped. Currently, her calculated MELD score is 28 with a Child-Clay classification C, which puts her 90 day mortality at approximately 30%. Given her recent consumption of one pint of vodka daily, mineral deficiencies including vitamin K could also contribute to her elevated INR, but could also be indicative of significant hepatic dysfunction. Recommendations: a. Strongly encourage alcohol cessation/abstinence. b. Continue the patient on alcohol withdrawal protocol. c. Continue multivitamin daily as part of probable nutritional deficiency, but would consider addition of another dose of vitamin K. d. Continue to trend her LFTs and INR daily as they could be indicative of worsening liver function. e. We would defer endoscopic evaluation until the results of the tagged red cell scan are back. f. She does have a mild elevation in AST compared to ALT concerning for alcoholic hepatitis, but the patient was recently running fevers. The use of prednisolone may have more risks and benefits. g. I would have a low threshold to transfer the patient to a tertiary care facility with liver transplant capabilities if MELD score starts to increase or she starts having elevated INR or worsening hepatic encephalopathy. We will continue to follow. Please call with any questions. Job ID: [id number]
[2019-10-21] MEDS: cefTRIAXone\\ROCEPHIN 1 GM in Sodium Chloride 0.9% 100 ML IVPB SCH (16:40)
--- NOTE | 2019-10-21 16:44 | PDOC.HOSPP ---
- Subjective Encounter Date: 10/21/19 Encounter Time: 16:42 Subjective: Ms. Scott was seen today in follow-up of severe anemia, and retroperitoneal hemorrhage/hematoma. She notes some flank pain on the right, but says it has not changed since her admission. She denies any melena, no vomiting, or hematemesis. - Objective Vital Signs & Weight: Vital Signs (12 hours) Temp Pulse Resp BP BP Pulse Ox 10/21/19 16:00 99.4 F 119 H 18 112/74 97 10/21/19 12:00 115/69 10/21/19 11:51 98.3 F 125 H 16 115/69 94 L 10/21/19 08:33 99 10/21/19 08:00 113/70 96 10/21/19 07:45 100.4 F H 114 H 18 113/70 99 Weight Admit Weight 138 lb 0.15 oz Weight 138 lb 0.15 oz Most Recent Monitor Data Heart Rate from ECG 111 NIBP 103/66 NIBP BP-Mean 78 Respiration from ECG 24 SpO2 92 I&O: 10/20/19 10/21/19 10/22/19 06:59 06:59 06:59 Intake Total 1374 2240 350 Output Total 570 425 Balance 804 1815 350 Result Diagrams: 10/21/19 09:40 10/21/19 09:40 Hospitalist ROS - Medication Medications: Active Medications Generic Name Dose Route Start Last Admin Trade Name Freq PRN Reason Stop Dose Admin Acetaminophen 650 mg 10/19/19 11:58 10/20/19 14:12 Tylenol PO 650 mg Q6H PRN Administration Headache/Fever or Pain Diazepam 5 mg 10/20/19 04:00 10/20/19 14:10 Valium PO 5 mg Q4H PRN Administration FOR ASE 10 OR GREATER Fentanyl 25 mcg 10/19/19 09:21 10/20/19 10:27 Sublimaze SLOW IVP 25 mcg Q6H PRN Administration Mild Pain (1-3) Fentanyl 50 mcg 10/19/19 09:21 10/20/19 22:41 Sublimaze SLOW IVP 50 mcg Q6H PRN Administration Moderate to Severe Pain (6-10) Folic Acid 1 mg 10/20/19 09:00 10/21/19 08:46 Folvite PO 1 mg DAILY FRANCESCA Administration Sodium Chloride 1,000 mls @ 100 mls/hr 10/18/19 23:30 10/21/19 12:31 Normal Saline 0.9% IV 1,000 mls .Q10H FRANCESCA Administration Ceftriaxone Sodium 1 gm/ 100 mls @ 200 mls/hr 10/20/19 14:00 10/20/19 14:11 Sodium Chloride IVPB 100 mls Q24HR FRANCESCA Administration Iron/Minerals/Multivitamins 1 tab 10/21/19 09:00 10/21/19 08:46 Theragran M PO 1 tab DAILY FRANCESCA Administration Magnesium Oxide 400 mg 10/20/19 09:00 10/21/19 08:46 Magnesium Oxide PO 400 mg DAILY FRANCESCA Administration Thiamine HCl 100 mg 10/20/19 09:00 10/21/19 08:46 Thiamine PO 100 mg DAILY FRANCESCA Administration - Exam General Appearance: NAD, ill appearing Eye: PERRL, scleral icterus Heart: RRR (mildly tachycardic) Respiratory: CTAB, no wheezes, no rales, no ronchi Gastrointestinal: soft, tender to palpation, distended (+ umbilical hernia, + distended abdominal wall veins,) Extremities: no edema (+ diffuse bruising on the lower extremities, and extensive bruising in the right flank) Hosp A/P (1) Cirrhosis, alcoholic Code(s): K70.30 - ALCOHOLIC CIRRHOSIS OF LIVER WITHOUT ASCITES Status: Acute (2) Acute anemia Code(s): D64.9 - ANEMIA, UNSPECIFIED Status: Acute (3) Hypokalemia Code(s): E87.6 - HYPOKALEMIA Status: Acute (4) Macrocytic anemia Code(s): D53.9 - NUTRITIONAL ANEMIA, UNSPECIFIED Status: Chronic (5) Protein-calorie malnutrition, moderate Code(s): E44.0 - MODERATE PROTEIN-CALORIE MALNUTRITION Status: Chronic (6) Retroperitoneal hematoma Code(s): K66.1 - HEMOPERITONEUM Status: Acute (7) Coagulopathy Status: Acute - Plan * Large retroperitoneal Hematoma, with acute blood loss anemia- her H&H dropped again- will transfuse * GI recommendations noted- Tagged RBC scan was ordered * Will continue to trransfuse as needed * Coagulopathy- due to Alcohol abuse- agree with Vitamin K, and FFP for acute bleeding * Continue Multi-vitamin, and Thiamine, * Hypokalemia- continue to replace * Continue empiric Rocephin for new onset Cirrhosis * Condition is guarded
[2019-10-21] MEDS: Fentanyl 100 MCG/2 ML VIAL SLOW IVP PRN ×2 (16:46→21:48)
[2019-10-21] MEDS: Acetaminophen 325 MG TAB PO PRN (20:08)
[2019-10-22] MEDS: Sodium Chloride 0.9% 1,000 ML IV SCH ×3 (01:41→17:56)
[2019-10-22] MEDS: Fentanyl 100 MCG/2 ML VIAL SLOW IVP PRN (05:03)
[2019-10-22 06:13] LABS: INR-International Normal Ratio 2.4; Mean Corpuscular HGB CONC 32.4 g/dL (32.0-36.0); Mean Corpuscular Hemoglobin 32.6 pg (27.0-31.0); Mean Platelet Volume 9.2 fL (7.4-10.4); Platelet Count 77 thou/uL (130-400); Prothrombin Time 25.8 sec (12.0-14.7); RBC Distribution Width 24.8 % (11.5-14.5); Red Blood Cell (RBC) Count 1.54 mill/uL (4.20-5.40)
[2019-10-22 06:30] LABS: ALT (SGPT) 25 U/L (8-55); AST (SGOT) 103 U/L (5-34); Albumin 1.8 g/dL (3.5-5.0); Alkaline Phosphatase 203 U/L (40-110); Anion Gap 9 mmol/L (10-20); BUN (Urea Nitrogen) 11 mg/dL (7.0-18.7); Bilirubin, Total 11.7 mg/dL (0.2-1.2); Calc. Creatinine Clearance 169 mL/min (70-130); Calcium 6.3 mg/dL (7.8-10.44); Carbon Dioxide 22 mmol/L (22-29); Chloride 100 mmol/L (98-107); Estimated GFR-MDRD Greater than 90; Globulin 3.4 g/dL (2.4-3.5); Glucose 119 mg/dL (70-105); Magnesium 1.6 mg/dL (1.6-2.6); Potassium 3.2 mmol/L (3.5-5.1); Protein, Total 5.2 g/dL (6.0-8.3); Sodium 128 mmol/L (136-145)
[2019-10-22 06:49] LABS: Reflex for Review?? YES
[2019-10-22 06:50] LABS: Band 1 % (5-11); Eosinophils 1 % (0-10); Hypochromia MODERATE=16-30 cells (100X) (0-5/hpf); Lymphocytes 7 % (21-51); MDiff Complete? YES; Monocytes 5 % (0-10); Neutrophil 86 % (42-75); Platelet Morphology Comment Appears Decreased; Polychromasia SLIGHT = 2-3 cells (100X) (0-2/hpf); Target Cells SLIGHT = 2-5 cells (100X) (0-1/hpf)
[2019-10-22] MEDS ORDERED: Morphine 2 MG/ML SYRINGE SLOW IVP PRN (10:43)
[2019-10-22] MEDS ORDERED: Morphine 4 MG/ML VIAL SLOW IVP PRN (10:43)
[2019-10-22] MEDS: Multivitamin W/ Minerals 1 TAB PO SCH (11:45)
[2019-10-22] MEDS: Magnesium Oxide 400 MG TAB PO SCH (11:45)
[2019-10-22] MEDS: Folic Acid 1 MG TAB PO SCH (11:45)
[2019-10-22] MEDS: Thiamine 100 MG TAB PO SCH (11:45)
--- NOTE | 2019-10-22 12:04 | NM ---
NUCLEAR MEDICINE TAGGED RED CELL SCAN HISTORY: Decreasing hematocrit with ongoing bleeding RADIOPHARMACEUTICAL: 27 mCi technetium-99m tagged RBCs injected intravenously. COMPARISON: CT abdomen/pelvis 10/18/2019 FINDINGS: Normal uptake of the radiopharmaceutical in the background is seen. There is an area of abnormal accumulation of the radiopharmaceutical along the right aspect of the ab domen. Accumulation starts at approximately 10 minutes and continued accumulation is seen throughout the study. This is centered at the level of aortic bifurcation and most likely represents the hematoma seen on CT scan in the iliacus muscle. On the lateral view, this appears posterior and not in the anterior abdomen where the bowel loops would be present. IMPRESSION: There appears to be continued active bleeding in the right abdomen, likely within the iliacus muscle seen on prior CT.
--- NOTE | 2019-10-22 12:27 | PDOC.HOSPP ---
- Subjective Encounter Date: 10/22/19 Encounter Time: 12:25 Subjective: Ms. Scott was seen today in follow-up of acute anemia and liver failure. She had another drop in her H&H. She just returned from tagged RBC scan, results are pending. - Objective Vital Signs & Weight: Vital Signs (12 hours) Temp Pulse Resp BP BP Pulse Ox 10/22/19 11:32 98.9 F 120 H 16 111/66 96 10/22/19 08:00 101/67 96 10/22/19 07:47 98.5 F 111 H 16 95/56 L 94 L 10/22/19 04:00 98.3 F 114 H 20 106/73 106/73 94 L Weight Admit Weight 138 lb 0.15 oz Weight 138 lb 0.15 oz Most Recent Monitor Data Heart Rate from ECG 111 NIBP 103/66 NIBP BP-Mean 78 Respiration from ECG 24 SpO2 92 I&O: 10/21/19 10/22/19 10/23/19 06:59 06:59 06:59 Intake Total 2240 3850 350 Output Total 425 Balance 1815 3850 350 Result Diagrams: 10/22/19 05:57 10/22/19 05:57 Hospitalist ROS - Medication Medications: Active Medications Generic Name Dose Route Start Last Admin Trade Name Freq PRN Reason Stop Dose Admin Acetaminophen 650 mg 10/19/19 11:58 10/21/19 20:08 Tylenol PO 650 mg Q6H PRN Administration Headache/Fever or Pain Diazepam 5 mg 10/20/19 04:00 10/20/19 14:10 Valium PO 5 mg Q4H PRN Administration FOR ASE 10 OR GREATER Folic Acid 1 mg 10/20/19 09:00 10/22/19 11:45 Folvite PO Not Given DAILY FRANCESCA Sodium Chloride 1,000 mls @ 100 mls/hr 10/18/19 23:30 10/22/19 11:45 Normal Saline 0.9% IV Not Given .Q10H FARNCESCA Ceftriaxone Sodium 1 gm/ 100 mls @ 200 mls/hr 10/20/19 14:00 10/21/19 16:40 Sodium Chloride IVPB 100 mls Q24HR FRANCESCA Administration Iron/Minerals/Multivitamins 1 tab 10/21/19 09:00 10/22/19 11:45 Theragran M PO Not Given DAILY FRANCESCA Magnesium Oxide 400 mg 10/20/19 09:00 10/22/19 11:45 Magnesium Oxide PO Not Given DAILY [facility] Morphine Sulfate 4 mg 10/22/19 10:43 10/22/19 10:54 Morphine SLOW IVP 4 mg Q4H PRN Administration Severe Pain (7-10) Thiamine HCl 100 mg 10/20/19 09:00 10/22/19 11:45 Thiamine PO Not Given DAILY FRANCESCA - Exam Eye: PERRL, scleral icterus Heart: RRR (mildly tachycardic) Respiratory: CTAB, no wheezes, no rales, no ronchi, normal chest expansion Gastrointestinal: distended (+ bruising on the right flank, + distended veins, and umbilical hernia) Extremities: no cyanosis, no edema Hosp A/P (1) Cirrhosis, alcoholic Code(s): K70.30 - ALCOHOLIC CIRRHOSIS OF LIVER WITHOUT ASCITES Status: Acute (2) Acute anemia Code(s): D64.9 - ANEMIA, UNSPECIFIED Status: Acute (3) Hypokalemia Code(s): E87.6 - HYPOKALEMIA Status: Acute (4) Macrocytic anemia Code(s): D53.9 - NUTRITIONAL ANEMIA, UNSPECIFIED Status: Chronic (5) Protein-calorie malnutrition, moderate Code(s): E44.0 - MODERATE PROTEIN-CALORIE MALNUTRITION Status: Chronic (6) Retroperitoneal hematoma Code(s): K66.1 - HEMOPERITONEUM Status: Acute (7) Coagulopathy Status: Acute - Plan * Large retroperitoneal Hematoma, with acute blood loss anemia- continue to transfuse, as needed * Will give a unit of FFP, as well as Vitamin K * Tagged RBC scan is noted- there appears to be continued bleeding into the right iliac * Will re-consult surgery * Continue Multi-vitamin, and Thiamine, * Hypokalemia- continue to replace * Continue empiric Rocephin for new onset Cirrhosis * Condition is guarded
[2019-10-22] MEDS ORDERED: Phytonadione 10 MG in Sodium Chloride 0.9% 50 ML IVPB SCH ×3 (12:45→23:30)
[2019-10-22] MEDS ORDERED: Potassium Chloride 20 MEQ in Premix Bag 1 BAG IVPB SCH ×2 (13:30→17:00)
[2019-10-22] MEDS: cefTRIAXone\\ROCEPHIN 1 GM in Sodium Chloride 0.9% 100 ML IVPB SCH ×2 (16:22→18:35)
--- NOTE | 2019-10-22 16:53 | PDOC.EVN ---
Event Note - Event Note Event Note: Patient is hypotensive. Blood pressure was 74/40 on re-check manually. Will move her to the ICU, and start Albumin, and bolus with 500ml/NS. She may require pressor support.
[2019-10-22] MEDS ORDERED: Sodium Chloride 0.9% 500 ML IV SCH (18:15)
[2019-10-22] MEDS: Albumin 25% 25 GM/100 ML BOT IVPB SCH (18:36)
--- NOTE | 2019-10-22 20:59 | PRG ---
DATE OF SERVICE: 10/22/2019 REASON FOR CONSULTATION: Anemia, cirrhosis of the liver. SUBJECTIVE: There were no acute events or problems overnight. However, during the course of the day today, the patient exhibited increased hypotension concerning for continued GI bleeding. She subsequently underwent a tagged red cell scan for further localization of the bleeding. Otherwise, the patient states that she just continues to be fatigued, but describes no other additional problems. Currently, she denies any nausea, vomiting, fevers, chills, abdominal pain, hematemesis, melena, hematochezia, dysphagia, or odynophagia. OBJECTIVE: VITAL SIGNS: Temperature 98.5, pulse 110, blood pressure 99/50, respiratory rate 28, saturating 100% on room air. GENERAL: The patient was lying in bed, in no acute distress. Alert and oriented x3. CARDIOVASCULAR: Tachycardic rate, but regular rhythm. RESPIRATORY: Clear to auscultation bilaterally. ABDOMEN: Mild abdominal distention with positive umbilical hernia that is easily reducible. Normoactive bowel sounds. Soft and nontender. EXTREMITIES: Large ecchymosis was noted along the superior aspect of the right hip, in addition to ecchymoses along her lower back. No cyanosis, clubbing, or edema was noted in the bilateral lower extremities. LABORATORY DATA: CBC with a white blood cell count of 10, hemoglobin 5, hematocrit 15.5, platelets 77. INR 2.4. Chemistry with a sodium of 128, potassium 3.2, chloride 100, CO2 of 22, BUN 11, creatinine 0.45, glucose 119. AST 103, ALT 25, alkaline phosphatase 203, total bilirubin 11.7. IMAGING DATA: The patient underwent a tagged red cell scan on October 22, 2019, which showed an abnormal accumulation of the radiopharmaceutical tracer along the right aspect of the abdomen. This accumulation was centered at the level of the aortic bifurcation and most likely represented the hematoma seen on CT scan in the iliacus muscle. ASSESSMENT AND PLAN: The patient is a 39-year-old female with past medical history of chronic pancreatitis and alcoholic cirrhosis complicated by only splenomegaly, presenting with significant anemia secondary to a bleeding/retroperitoneal hematoma as well as significant liver dysfunction. 1. Anemia/retroperitoneal hematoma. The patient initially presented with decreased hemoglobin on admission of 3.4, but did not endorse any evidence of overt bleeding from the GI tract or elsewhere. CT scan obtained on admission showed a large hematoma within the iliacus muscle, but there was no comment on whether or not had active extravasation or features of active extravasation. However, during the course of this admission, the patient exhibited a drop in her hemoglobin and hematocrit that was associated with hypotension with a tagged red cell scan performed showing the accumulation of the tracer in the right iliacus region consistent with a hematoma. At this time, her bleeding source is most likely within the hematoma itself and as such is not necessarily easily reached via surgery especially given her significant coagulopathy. At this time, an endovascular approach is most recommended in order to stop the bleeding in addition to administration of blood and blood product. 2. Recommendations. a. Would continue to trend her hemoglobin and hematocrit and transfuse as necessary to maintain hemoglobin and hematocrit of 7/21. b. Continue to monitor clinically for signs of active GI bleeding. c. Would consult Vascular Surgery for possible endovascular embolization of the bleeding source/retroperitoneal hematoma. d. Agree with administration of FFP in order to temporarily reverse her coagulopathy and facilitate clotting. e. If the angiography and embolization cannot be easily obtained here, I would recommend transferring the patient to another facility for evaluation and treatment via angiography. Alcoholic cirrhosis. 1. The patient is presenting with a history of alcoholic cirrhosis based on cirrhotic morphology, thrombocytopenia, and elevated INR. Currently presenting with decompensated disease with new onset of small ascites along with a calculated MELD score of approximately 28 and Child-Clay classification C with more conservative management (without prednisolone given fever during this admission). Her hepatic function has been relatively stable until earlier today when she was noted to have an increasing INR, which is concerning for the presence of worsening hepatic function/impending hepatic failure; however, she does not endorse any hepatic encephalopathy at this time, which would further reinforce the diagnosis. 2. Recommendations: a. Continue the patient on alcohol withdrawal protocol. b. Continue the patient on a multivitamin for probable nutritional deficiencies including thiamine, folate, and vitamin K. c. Continue to trend her LFTs and INR daily as they could be harbingers of worsening liver function. d. Endoscopic evaluation is not indicated at this time. e. Use of prednisolone in this particular patient population is controversial with study showing a decrease in 30-day mortality, but no change in 90-day mortality. Given her recent fevers, it could be an element of her alcoholic hepatitis, but could also be due to an infectious source, in which case, prednisolone is contraindicated. At this time, I would continue to hold the prednisolone. f. I would have a low threshold to transfer the patient to a tertiary care facility with liver transplant capabilities at this time especially given her worsening INR. We will continue to follow. Please call with any questions. Job ID: [id number]
[2019-10-22 22:05] LABS: Hemoglobin 3.5 g/dL (12.0-16.0)
[2019-10-22 22:06] LABS: Platelet Count 68 thou/uL (130-400)
[2019-10-22 22:36] LABS: PTT 44.7 sec (22.9-36.1); Prothrombin Time 39.2 sec (12.0-14.7)
[2019-10-22 22:46] LABS: INR-International Normal Ratio 4.1
[2019-10-22 22:58] LABS: Hemoglobin 3.3 g/dL (12.0-16.0)
[2019-10-22 23:09] LABS: Anisocytosis MARKED = >30 cells (100X) (0-5/hpf); Band 9 % (5-11); Hypochromia SLIGHT = 6-15 cells (100X) (0-5/hpf); Lymphocytes 18 % (21-51); MDiff Complete? YES; Macrocytosis SLIGHT = 6-15 cells (100X) (0-5/hpf); Mean Corpuscular HGB CONC 31.1 g/dL (32.0-36.0); Mean Corpuscular Hemoglobin 32.5 pg (27.0-31.0); Mean Platelet Volume 9.1 fL (7.4-10.4); Microcytosis SLIGHT = 6-15 cells (100X) (0-5/hpf); Monocytes 13 % (0-10); Neutrophil 60 % (42-75); Platelet Count 62 thou/uL (130-400); Platelet Morphology Comment Appears Decreased; RBC Distribution Width 24.9 % (11.5-14.5); Red Blood Cell (RBC) Count 1.01 mill/uL (4.20-5.40); White Blood Cell (WBC) Count 15.4 thou/uL (4.8-10.8)
[2019-10-22] MEDS: Norepinephrine 8 MG/0.9% NS 250 ML IVPB SCH (23:56)
[2019-10-23] MEDS ORDERED: Phytonadione 10 MG/ML AMP SLOW IVP SCH (00:30)
[2019-10-23] MEDS ORDERED: HUM PROTHROMBIN CPLX(PCC)4FACT 1,000 UNIT, Human Prothrombin Complx(PCC) 500 UNIT in Ad... IV SCH (00:30)
[2019-10-23] MEDS ORDERED: Propofol 1,000 MG/100 ML VIAL IV ONE (01:03)
--- NOTE | 2019-10-23 01:25 | CON ---
DATE OF CONSULTATION: HISTORY OF PRESENT ILLNESS: Ms. Scott is a 39-year-old woman who I was called about this evening, who has been in the hospital with retroperitoneal bleed. She has a history of alcoholic cirrhosis. Her hemoglobin on last check was 3.3, which has steadily drifted down. Her INR is 4.1. She has already received 4 units of packed red blood cells and 4 units of FFP. We have elected to intubate her. I have been asked to see her to take her for pelvic embolization. At the time of admission on 10/17, she had a CT of the abdomen performed, which shows a moderate-sized right retroperitoneal hematoma in the pelvis. Tagged red blood cell scan was performed today, which shows an active right pelvic bleed. PAST MEDICAL HISTORY: Alcoholic cirrhosis with end-stage liver disease. PAST SURGICAL HISTORY: None. SOCIAL HISTORY: She drinks a pint of vodka a day. She smokes approximately half pack to one pack of cigarettes a day. PHYSICAL EXAMINATION: VITAL SIGNS: Heart rate is in the 90s, blood pressure 90s to 100; blood pressure is 98/66. LUNGS: Clear. ABDOMEN: Distended. EXTREMITIES: Warm. ASSESSMENT AND PLAN: This is a patient in near extremis with active bleeding into the retroperitoneum. I have been asked to take her for angiography and embolization. She is actively being transfused. We placed her on the ventilator. Job ID: [id number]
[2019-10-23] MEDS ORDERED: Sodium Bicarb 50 MEQ/50 ML VIAL ONE (01:45)
--- NOTE | 2019-10-23 01:56 | PDOC.EVN ---
Event Note - Event Note Event Note: Nurse called pt's blood pressure low and appeared tachypneic. Stat hh ordered. Pt's hh was 3.5. Called gi about pt who recommended transferring pt. Called transfer center to transfer pt out. will check inr and will transfuse additional 2units and will order ffp's. will ask er to place a central line. I was notified by the nurse that the community health vascular surgeon was not comfortable doing an embolization. given her hh being 3.5, inr of 4.0 and no one for embolization i have no choice but to give her kcentra for bleeding. ffp and blood is being transfused. spoke with Gi who was going to call another cv surgeon for embolization. called pt's daughter multiple times phone was busy. Got the number from nurse for boyfriend who texted pt's daughter. I called the daughter and updated her about her mother condition. spoke with transfer center again for transferring pt. I was told that [facility] was full and [facility] does not have shipyard painting supervisor. will try [place]. CV surgeon at bedside, pt intubated. I did speak with pt's sister Fatou and updated her about pt's condition. The number was given to pt's nurse to put in the computer. spoke with pt's sister Fatou after the procedure and updated her. she is [place] and wants to come see the pt. I told her will ask administration if ok for her to come see the patient since she will be flying from [place]. I have asked nursing staff to follow up with this.
[2019-10-23] MEDS ORDERED: Fentanyl BOLUS 250 ML IVPB PRN (02:23)
[2019-10-23] MEDS ORDERED: Lorazepam 2 MG/ML VIAL SLOW IVP PRN (02:23)
[2019-10-23] MEDS ORDERED: DISCONTINUE PREVIOUS NARCOTIC PAIN MEDICATIONS AND BENZODIAZEPINES FS SCH (02:23)
[2019-10-23] MEDS ORDERED: Morphine 2 MG/ML SYRINGE SLOW IVP PRN (02:23)
[2019-10-23] MEDS ORDERED: Propofol BOLUS 1,000 MG/100 ML VIAL IV PRN (02:23)
[2019-10-23] MEDS ORDERED: Propofol 1,000 MG/100 ML VIAL IV PRN (02:23)
[2019-10-23 02:24] LABS: Actual Bicarbonate (HCO3a) 12.5 mEq/L (22-28); Base Excess (BEa) -15.2 mEq/L (-2.0 to +3.0); CO2 Tension 37.4 mmHg (35.0-45.0); Calcium, Ionized (arterial) 0.85 mmol/L (1.12-1.30); Carboxyhemoglobin (COHb) 2.6 gm% (0.0-3.0); Hemoglobin (Hb) 6.8 g/dL (12.0-16.0); O2 Tension (PaO2), arterial 111.9 mmHg (80.0-100.0); Potassium - ABG Lab 4.35 mmol/L (3.70-5.30)
[2019-10-23] MEDS: Albumin 25% 25 GM/100 ML BOT IVPB SCH ×3 (02:27→17:47)
[2019-10-23] MEDS: fentaNYL Citrate/PF 2,000 MCG in Sodium Chloride 0.9% 60 ML IV SCH ×2 (02:34→17:48)
[2019-10-23 02:35] LABS: pH, Arterial 7.14 (7.35-7.45)
[2019-10-23 02:36] LABS: Puncture Site ALINE
[2019-10-23 02:53] LABS: Hemoglobin 7.9 g/dL (12.0-16.0); Mean Corpuscular HGB CONC 34.5 g/dL (32.0-36.0); Mean Corpuscular Hemoglobin 31.3 pg (27.0-31.0); Mean Corpuscular Volume 90.9 fL (78.0-98.0); Mean Platelet Volume 8.8 fL (7.4-10.4); Platelet Count 81 thou/uL (130-400); RBC Distribution Width 15.7 % (11.5-14.5); White Blood Cell (WBC) Count 11.4 thou/uL (4.8-10.8)
[2019-10-23 02:57] LABS: INR-International Normal Ratio 1.9; Prothrombin Time 22.1 sec (12.0-14.7)
[2019-10-23 02:58] LABS: PTT 44.6 sec (22.9-36.1)
[2019-10-23 03:18] LABS: ALT (SGPT) 26 U/L (8-55); AST (SGOT) 121 U/L (5-34); Albumin 2.7 g/dL (3.5-5.0); Alkaline Phosphatase 118 U/L (40-110); Anion Gap 26 mmol/L (10-20); BUN (Urea Nitrogen) 17 mg/dL (7.0-18.7); Bilirubin, Total 10.9 mg/dL (0.2-1.2); Calc. Creatinine Clearance 69 mL/min (70-130); Calcium 6.4 mg/dL (7.8-10.44); Carbon Dioxide 12 mmol/L (22-29); Chloride 102 mmol/L (98-107); Estimated GFR-MDRD 56; Globulin 2.5 g/dL (2.4-3.5); Glucose 60 mg/dL (70-105); Magnesium 1.8 mg/dL (1.6-2.6); Potassium 4.4 mmol/L (3.5-5.1); Protein, Total 5.2 g/dL (6.0-8.3); Sodium 136 mmol/L (136-145)
[2019-10-23 03:21] LABS: Band 15 % (5-11); Lymphocytes 14 % (21-51); MDiff Complete? YES; Monocytes 10 % (0-10); Neutrophil 61 % (42-75); Platelet Morphology Comment Appears Decreased
[2019-10-23 05:33] LABS: PTT 42.1 sec (22.9-36.1); Prothrombin Time 22.2 sec (12.0-14.7)
[2019-10-23 05:54] LABS: Hemoglobin 7.5 g/dL (12.0-16.0); Mean Corpuscular HGB CONC 34.4 g/dL (32.0-36.0); Mean Corpuscular Volume 90.1 fL (78.0-98.0); Mean Platelet Volume 9.3 fL (7.4-10.4); Platelet Count 88 thou/uL (130-400); RBC Distribution Width 16.1 % (11.5-14.5); Red Blood Cell (RBC) Count 2.42 mill/uL (4.20-5.40); White Blood Cell (WBC) Count 12.1 thou/uL (4.8-10.8)
[2019-10-23 07:20] LABS: Actual Bicarbonate (HCO3a) 9.5 mEq/L (22-28); Base Excess (BEa) -16.1 mEq/L (-2.0 to +3.0); Calcium, Ionized (arterial) 0.88 mmol/L (1.12-1.30); O2 Tension (PaO2), arterial 75.6 mmHg (80.0-100.0); Potassium - ABG Lab 5.06 mmol/L (3.70-5.30)
[2019-10-23 07:22] LABS: CO2 Tension 23.7 mmHg (35.0-45.0); pH, Arterial 7.22 (7.35-7.45)
[2019-10-23 07:23] LABS: ALV-art Gradient 429.525 (0-20); Puncture Site ALINE
--- NOTE | 2019-10-23 08:10 | CON ---
DATE OF CONSULTATION: 10/23/2019 TIME SPENT: 35 minutes of critical care time. REASON FOR CONSULTATION: ICU management. CONSULTING PHYSICIAN: Hospitalist Group. HISTORY OF PRESENT ILLNESS: The patient is a 39-year-old female with a history of alcoholic cirrhosis, who was admitted to the hospital on 10/18/2019 with increasing right lower extremity pain, easy bruising, and significant anemia. Further workup demonstrated her to have a fairly substantial retroperitoneal bleed. She was taken down for arteriogram by Dr. Joel last night. She had right internal iliac embolization for bleeding from that area. She received significant amount of blood. She is intubated. She has a severe metabolic acidosis. PAST MEDICAL HISTORY: Cirrhosis due to alcohol. PAST SURGICAL HISTORY: None prior to last night. FAMILY MEDICAL HISTORY: Unremarkable. SOCIAL HISTORY: Drinks a pint of vodka every 1 to 2 days. Smokes half pack per day. Does not use any illicit drugs. ALLERGIES: NONE. MEDICATIONS: Prior to admission, none. Current inpatient medications list, please review chart. REVIEW OF SYSTEMS: Cannot be obtained. She is currently on mechanical ventilation. PHYSICAL EXAMINATION: VITAL SIGNS: Pulse 116, blood pressure 90/45 via A-line, O2 saturation 95%, respiratory rate 22, and temperature 100.4. GENERAL: The patient is a middle-aged woman, who appears far older than her stated age. HEENT: She has jaundiced skin. She has anicteric sclerae with conjunctival edema. Oropharynx is intubated. NECK: No adenopathy or JVD. LUNGS: Coarse breath sounds bilaterally. CARDIOVASCULAR: S1 and S2. Tachycardic. ABDOMEN: Distended. Ascites present. EXTREMITIES: She has large amount of bruising over her right leg upper thigh region. LABORATORY DATA: INR is 2.0. White blood cell count 12.1, hematocrit 21.8, and platelet count 88. Sodium 136, potassium 4.4, chloride 102, CO2 of 12, BUN 17, creatinine 1.1, glucose 60, AST 121, ALT 26, and alkaline phosphatase 118. IMAGING DATA: Her x-ray shows what appears to be either right diaphragmatic elevation or small effusion. My guess is she has some atelectasis in the right upper lobe. ASSESSMENT: 1. Retroperitoneal bleed secondary to right internal iliac bleed. 2. Anemia due to blood loss. 3. Cirrhosis. 4. Respiratory failure, requiring mechanical ventilation. 5. Severe metabolic acidosis secondary to blood loss. 6. Cirrhotic liver. PLAN: The patient is not a candidate for weaning at this time. I will put her on a bicarb drip to help with her acid-base status. The primary team and GI are monitoring her blood counts and I would suggest transfusing as appropriate and making sure her coagulation parameters are corrected. Prognosis is poor. Job ID: [id number]
[2019-10-23] MEDS: Sodium Chloride 0.9% 1,000 ML IV SCH (08:14)
[2019-10-23 08:32] LABS: Anisocytosis MODERATE=16-30 cells (100X) (0-5/hpf); Band 6 % (5-11); Burr Cells SLIGHT = 2-5 cells (100X) (0-1/hpf); Lymphocytes 11 % (21-51); MDiff Complete? YES; Monocytes 18 % (0-10); Neutrophil 65 % (42-75); Platelet Morphology Comment Appears Decreased; Polychromasia MODERATE = 3-4 cells (100X) (0-2/hpf); Vacuoles SLIGHT
[2019-10-23] MEDS: Folic Acid 1 MG TAB PO SCH (08:34)
[2019-10-23] MEDS: Magnesium Oxide 400 MG TAB PO SCH (08:34)
[2019-10-23] MEDS: Multivitamin W/ Minerals 1 TAB PO SCH (08:34)
[2019-10-23] MEDS: Thiamine 100 MG TAB PO SCH (08:35)
[2019-10-23 08:40] LABS: INR-International Normal Ratio 2.3; PTT 41.7 sec (22.9-36.1); Prothrombin Time 25.4 sec (12.0-14.7)
[2019-10-23] MEDS: Norepinephrine 8 MG/0.9% NS 250 ML IVPB SCH ×4 (08:45→22:11)
[2019-10-23] MEDS: Pantoprazole 40 MG VIAL IVP SCH (08:46)
--- NOTE | 2019-10-23 09:00 | PDOC.HOSPP ---
- Subjective Encounter Date: 10/23/19 Encounter Time: 08:56 Subjective: Ms. Scott was seen today in follow-up of severe anemia and bleed in to the retroperitoneum. She went for embolization last night. She is currently intubated. - Objective Vital Signs & Weight: Vital Signs (12 hours) Temp Pulse Resp BP Pulse Ox 10/23/19 08:00 22 H 10/23/19 07:12 115 H 95/43 L 10/23/19 06:00 24 H 10/23/19 04:00 27 H 100 10/23/19 02:28 114 H 153/78 H 10/23/19 02:00 22 H 10/23/19 01:11 109 H 115/66 10/23/19 00:00 97.2 F L 100 10/22/19 21:29 94 L 10/22/19 21:20 108 H 32 H 92 L Weight Admit Weight 138 lb 0.15 oz Weight 138 lb 0.15 oz Most Recent Monitor Data Heart Rate from ECG 116 NIBP 102/49 NIBP BP-Mean 66 Respiration from ECG 22 SpO2 95 I&O: 10/22/19 10/23/19 10/24/19 06:59 06:59 06:59 Intake Total 3850 5027.8 Output Total 435 25 Balance 3850 4592.8 -25 Result Diagrams: 10/23/19 07:30 10/23/19 02:38 Hospitalist ROS - Medication Medications: Active Medications Generic Name Dose Route Start Last Admin Trade Name Freq PRN Reason Stop Dose Admin Acetaminophen 650 mg 10/19/19 11:58 10/21/19 20:08 Tylenol PO 650 mg Q6H PRN Administration Headache/Fever or Pain Albumin Human 25 gm 10/22/19 18:00 10/23/19 08:48 Albumin 25% IVPB 10/23/19 18:01 25 gm 0200,1000,1800 FRANCESCA Administration Diazepam 5 mg 10/20/19 04:00 10/20/19 14:10 Valium PO 5 mg Q4H PRN Administration FOR ASE 10 OR GREATER Folic Acid 1 mg 10/20/19 09:00 10/23/19 08:34 Folvite PO Not Given DAILY FRANCESCA Ceftriaxone Sodium 1 gm/ 100 mls @ 200 mls/hr 10/22/19 18:00 06/21/20 18:35 Sodium Chloride IVPB 100 mls Q24HR FRANCESCA Administration Norepinephrine Bitartrate 250 mls @ 0 mls/hr 10/22/19 23:45 10/23/19 08:45 Levophed IVPB 250 mls INF FRANCESCA Administration Protocol Titrate Fentanyl Citrate 2,000 mcg/ 100 mls @ 0 mls/hr 10/23/19 02:23 10/23/19 02:34 Sodium Chloride IV 11/22/19 02:23 100 mls INF FRANCESCA Administration Protocol Per Protocol Iron/Minerals/Multivitamins 1 tab 10/21/19 09:00 10/23/19 08:34 Theragran M PO Not Given DAILY FRANCESCA Lorazepam 2 mg 10/23/19 02:23 10/23/19 04:13 Ativan SLOW IVP 11/22/19 02:23 2 mg Q1H PRN Administration Breakthrough agitation Magnesium Oxide 400 mg 10/20/19 09:00 10/23/19 08:34 Magnesium Oxide PO Not Given DAILY FRANCESCA Morphine Sulfate 2 mg 10/22/19 10:43 10/22/19 18:31 Morphine SLOW IVP 2 mg Q4H PRN Administration Moderate Pain (4-6) Morphine Sulfate 4 mg 10/22/19 10:43 10/22/19 10:54 Morphine SLOW IVP 4 mg Q4H PRN Administration Severe Pain (7-10) Pantoprazole Sodium 40 mg 10/23/19 09:00 10/23/19 08:46 Protonix IVP 40 mg DAILY FRANCESCA Administration Propofol 1,000 mg 10/23/19 02:23 10/23/19 08:46 Diprivan IV 11/22/19 02:23 1,000 mg INF PRN Administration TO ACHIEVE GOAL RASS Protocol Thiamine HCl 100 mg 10/20/19 09:00 10/23/19 08:35 Thiamine PO Not Given DAILY FRANCESCA - Exam Eye: PERRL, scleral icterus Heart: RRR, no murmur, no gallops, no rubs, normal peripheral pulses Respiratory: CTAB, no wheezes, no rales, normal chest expansion Gastrointestinal: distended, diminished bowl sounds Extremities: 2+ LE edema Hosp A/P (1) Cirrhosis, alcoholic Code(s): K70.30 - ALCOHOLIC CIRRHOSIS OF LIVER WITHOUT ASCITES Status: Acute (2) Acute anemia Code(s): D64.9 - ANEMIA, UNSPECIFIED Status: Acute (3) Hypokalemia Code(s): E87.6 - HYPOKALEMIA Status: Acute (4) Macrocytic anemia Code(s): D53.9 - NUTRITIONAL ANEMIA, UNSPECIFIED Status: Chronic (5) Protein-calorie malnutrition, moderate Code(s): E44.0 - MODERATE PROTEIN-CALORIE MALNUTRITION Status: Chronic (6) Retroperitoneal hematoma Code(s): K66.1 - HEMOPERITONEUM Status: Acute (7) Coagulopathy Status: Acute - Plan * Large retroperitoneal Hematoma- she is s/p embolization * Continue to transfuse as needed * She was given K-Centra and Vitamin K last night * She has developed hemorrhagic shock and will continue to transfuse as need and correct the coagulopathy * Change Thiamine to IV * Hypokalemia- continue to replace * Continue empiric Rocephin for new onset Cirrhosis * Condition is guarded * Will consult Palliative Care For assistance with establishing a Surrogate decision maker * She may need emergent transfer to a Higher level of care
[2019-10-23] MEDS: Sodium Bicarbonate 140 MEQ in Dextrose 5% in Water 1,000 ML IV SCH ×2 (09:14→23:20)
--- NOTE | 2019-10-23 09:17 | OP ---
DATE OF PROCEDURE: 10/23/2019 PREOPERATIVE DIAGNOSIS: Retroperitoneal bleed secondary to liver failure and severe coagulopathy. POSTOPERATIVE DIAGNOSIS: Retroperitoneal bleed secondary to liver failure and severe coagulopathy. PROCEDURES PERFORMED: 1. Abdominal aortogram. 2. Right common iliac angio. 3. Right internal iliac angio. 4. Right internal iliac angioembolization with four 6 x 28 fibered coils. TOTAL CONTRAST: 16. TOTAL FLUORO TIME: 3.3 minutes. ESTIMATED BLOOD LOSS: Less than 10. DESCRIPTION OF PROCEDURE: After the patient gave consent, we brought her to the woven label designer. She was placed in supine position on woven label designer table. Groins were prepped and draped in usual sterile fashion. Using ultrasound guidance, the left common femoral artery was accessed. The 5-Romanian sheath was placed. A Contra catheter was used to perform abdominal aortogram. A Contra catheter was used to cross the aortic bifurcation. Contra catheter was then exchanged for an angled Freedom catheter. Common iliac artery angiogram was performed laying out the iliac bifurcation. The internal iliac artery was accessed. Using multiple angled views, internal iliac injections were performed and there was a blush in the pelvis from multiple branches of the internal iliac artery. We elected to coil the main iliac on the right. The Contra catheter was positioned just at the bifurcation of the internal iliac artery. Four 6 x 28 fibered coils were placed with good angiographic result. As they clot, the internal iliac artery should thrombose. The catheter was removed over a Bentson wire. ProGlide was placed with good hemostasis. The patient tolerated the procedure well and was transferred back to the intensive care in stable condition. Job ID: [id number]
--- NOTE | 2019-10-23 09:20 | OP ---
DATE OF PROCEDURE: 10/23/2019 PREOPERATIVE DIAGNOSIS: Need for arterial monitoring. POSTOPERATIVE DIAGNOSIS: Need for arterial monitoring. PROCEDURE PERFORMED: Right radial arterial line placement with ultrasound guidance. DESCRIPTION OF PROCEDURE: Using ultrasound guidance, the right radial artery was located. The right wrist was prepped and draped in usual sterile fashion. Using ultrasound guidance, access to the radial artery was obtained and the radial artery monitoring catheter passed. Good bleeding arterial waveform was obtained. The line was secured. The patient tolerated the procedure well and was turned over to the hospitalist for further management. Job ID: [id number]
[2019-10-23] MEDS: Thiamine HCl 200 MG/2 ML VIAL SLOW IVP SCH (09:26)
--- NOTE | 2019-10-23 10:32 | RAD ---
PORTABLE CHEST: DATE: 10/22/2019. PROVIDED CLINICAL HISTORY: Central line placement. FINDINGS: Comparison 10/18/2019. Interval placement of left subclavian central line, the tip of which is overly ing the expected location of cavoatrial junction. There is interval development of opacification of much of the right hemithorax, etiology of which is not certain on the basis of this study. This coul d be on the basis of lobar atelectasis, pleural or extrapleural fluid. IMPRESSION: Development of opacification of much of the right hemithorax as described. Consider further evaluati on with CT as indicated. POS: NANCI
--- NOTE | 2019-10-23 11:02 | RAD ---
CHEST 1 VIEW: INDICATION: Intubation. COMPARISON: Prior exam dated 10/22/2019. FINDINGS: The patient has been intervally intubated. Tube tip is seen 2.2 cm above the level of the [place]. There is a left subclavian central venous catheter that is unchanged. Moderate to large right-sided pleural effusion persists. Mildly aerated right upper lobe is similar-appearing. There is persisten t subsegmental volume loss in the left lower lobe. Cardiomegaly and pulmonary vascular congestion pe rsists. IMPRESSION: Interval intubation. Otherwise, stable exam. POS:
[2019-10-23] MEDS ORDERED: Vecuronium 10 MG VIAL ONE (11:53)
[2019-10-23 12:25] LABS: INR-International Normal Ratio 3.4
[2019-10-23 12:26] LABS: PTT 50.6 sec (22.9-36.1)
[2019-10-23 12:27] LABS: Hemoglobin 5.8 g/dL (12.0-16.0)
--- NOTE | 2019-10-23 12:56 | PRG ---
DATE OF SERVICE: 10/23/2019 REASON FOR CONSULTATION: Anemia, cirrhosis of the liver. SUBJECTIVE: In the latter portion of yesterday and last night, the patient began to have progressive hypotension as well as tachycardia concerning for continued bleeding. A tagged red blood cell scan obtained yesterday showed enlargement of the hematoma as well as increased nuclear tracer uptake at the site of the hematoma. Subsequently, she was infused FFP, Kcentra in addition to packed red blood cells in an attempt to resuscitate the patient. Vascular Surgery was also contacted with emergent angiography performed showing multiple bleeding vessels within the right iliac artery, then underwent coil embolization. Subsequently, the patient remains intubated and sedated in the ICU at this time. Currently, the patient does remain tachycardic with significant hypotension despite maximum pressor support. Attempts to transfer the patient to a transplant center have thus far been unfruitful due to lack of beds at the other outlying facilities. OBJECTIVE: VITAL SIGNS: Temperature 97.2, pulse 107, blood pressure 82/39, respiratory rate 22, saturating 94% on mechanical ventilation. GENERAL: The patient was lying in bed, intubated and sedated, on mechanical ventilation. CARDIOVASCULAR: Tachycardic rate, but regular rhythm. RESPIRATORY: Clear to auscultation bilaterally. ABDOMEN: Severe abdominal distention with a positive umbilical hernia, that is not easily reducible. Hypoactive bowel sounds. Soft. No grimacing to palpation. EXTREMITIES: 1+ lower extremity edema was noted bilaterally. LABORATORY DATA: CBC with a white blood cell count of 11.4, hemoglobin 7.8, hematocrit 22.8, platelets 81. INR 2.0. Chemistry with a sodium of 136, potassium 4.4, chloride 102, CO2 of 12, BUN 17, creatinine 1.1, glucose 60, AST 121, ALT 26, alkaline phosphatase 118, total bilirubin 10.8. IMAGING DATA: The patient underwent emergent angiography on October 23, 2019, which showed a blush in the pelvis for multiple branches of the internal iliac artery in the right. Coil embolization was then employed with good angiographic result. ASSESSMENT AND PLAN: The patient is a 39-year-old female with past medical history of chronic pancreatitis, alcohol dependence and alcohol cirrhosis, complicated only by splenomegaly prior to admission, presenting with significant anemia secondary to a bleeding retroperitoneal hematoma, now status post emergent CT angiography as well as significant liver dysfunction. 1. Anemia/retroperitoneal hematoma. The patient initially presented with decreased hemoglobin on admission of approximately 3.4 with no endorsement of overt bleeding from the GI tract or elsewhere. She was subsequently given multiple units of PRBCs and had a relatively stable H and H until yesterday. Tagged red blood cell scan obtained on October 22, 2019, showed the presence of nuclear tracer uptake in the right pelvis consistent with the location of her retroperitoneal hematoma. Unfortunately, the patient exhibited increased tachycardia and hypotension concerning for worsening bleeding into this hematoma in addition to a significantly elevated INR, which could further contribute to that situation. She ultimately underwent emergent angiography on October 23, 2019, with blush of contrast noted along multiple branches of the right iliac artery, which were subsequently embolized via coil embolization. Further trending of her H and H continues to show downtrending, which could be either due to continued active bleeding or equalization of her current blood volume, given the amount of blood loss yesterday. Recommendations;. a. Would continue to trend her H and H and transfuse as necessary to maintain an H and H of 7/21. b. Continue to monitor clinically for signs of active GI bleeding. c. Appreciate the assistance of Vascular Surgery for endovascular embolization of the right iliac artery. d. Agree with administration of FFP in order to temporarily reverse her coagulopathy in light of active bleeding. e. Given the elevated INR as a sequelae of her chronic liver disease, I strongly recommend transferring the patient to a tertiary care facility with transplant capabilities for further evaluation. 2. Alcoholic cirrhosis. The patient is presenting with a history of alcoholic cirrhosis based on cirrhotic morphology, thrombocytopenia, and elevated INR. She presented to the hospital with decompensated disease with small ascites on imaging and a calculated MELD score of approximately 28/29 on admission with Child-Clay classification C. In terms of her hepatic function, it has been remained fairly stable with slightly downtrending total bilirubin today, but with her increasing INR, it is strongly concerning for hepatic failure. Recommendations;. a. Continue the patient on multivitamin for probably nutritional deficiencies including thiamine, folate, and vitamin K. b. Continue to trend her LFTs and INR daily for evidence of worsening liver dysfunction. c. We will consider using FFP in order to maintain an INR in light of active bleeding as stated above. d. Endoscopic evaluation is not indicated at this time. e. Prednisolone, I do not think it would be very helpful in this patient's case, given that the main problem is this bleeding hematoma rather than alcoholic hepatitis. f. I would strongly suggest transferring this patient to a tertiary care facility with liver transplant capabilities, especially given her worsening INR, which is most likely a harbinger of liver failure. Given her recent alcohol use history, it is unclear whether or not she would be a candidate at this time as well as with her worsening clinical status, she may not necessarily be a good surgical candidate as well. We will continue to follow. Please call with any questions. Job ID: [id number]
[2019-10-23] MEDS ORDERED: Iopamidol 370 76% 50 ML VIAL FS ONE (13:36)
[2019-10-23 13:46] LABS: SARS-CoV-2 MS2 Positive; SARS-CoV-2 N Gene Negative; SARS-CoV-2 S Gene Negative; SARS-CoV-2 orf1ab Negative
[2019-10-23] MEDS ORDERED: Vancomycin HCl 750 MG in Sodium Chloride 0.9% 250 ML 250 ML IVPB SCH (15:00)
[2019-10-23] MEDS ORDERED: Vancomycin HCl 1.25 GM in Sodium Chloride 0.9% 250 ML 250 ML IVPB SCH (15:00)
--- NOTE | 2019-10-23 15:24 | PDOC.PALCO ---
Palliative Care Consult - Consult Details Requesting Physician: Dr Squires Reason for Consult: advance directives assistance, family support Family Members Present: Patient daughter - Pertinent HPI 39 year old female who presents to the emergency room on 10/17 for evaluation of right lower extremity pain and edema. Significant history of alcoholic cirrhosis. Symptoms onset "a few days prior to presentation" with no evident relieving factors. No recall or knowledge of triggers. Known bruising, bleeding and epistaxis. Increase in fatigue. Emergency room evaluation identified significant anemia of 3.4/10.6 with an elevated inr 3.3, elevated LFT 's and bili. CT identified large retroperitoneal hematoma with evidence of cirrhosis and chronic pancreatitis. Also identified subcutaneous hematoma to right thigh. Admitted, subsequent transfer to CCU for elevated support 10/21 with eventual intubation, continued transfusion, bleed in to the retroperitoneum, and embolization. Hospitalist attempted to transfer but multiple hospitals unable to take patient secondary to already at capacity. - Pertinent PMH Pancreatitis - Social History Smoking Status: Current every day smoker Smoking: less than 1 pack/day Alcohol Use: heavy, daily Drug Use History: none Living Situation: independent - Medications MAR Reviewed: Yes - Allergies Allergies/Adverse Reactions: Allergies Allergy/AdvReac Type Severity Reaction Status Date / Time No Known Drug Allergies Allergy Verified 10/19/19 03:33 - Subjective non responsive, mechanical ventilation. Daughter at bedside - ROS Non Response: due to endotracheal tube, due to mental status - Objective Vital Signs: Vital Signs - Most Recent Temp Pulse Resp BP Pulse Ox 98.1 F 103 H 22 H 76/39 L 92 L 10/23/19 14:25 10/23/19 14:44 10/23/19 14:25 10/23/19 14:44 10/23/19 14:25 Palliative Performance Scale: 20 - Physical Exam Constitutional: encephalitic, ill appearing HEENT: moist MMs, scleral icterus Deviation from normal: mechanical ventilation Deviation from normal: tachycardia Gastrointestinal: incontinent Deviation from normal: Distended Genitourinary: marie catheter Musculoskeletal: edema present Deviation from normal: encephalopathic Skin: bruising Deviation from normal: Icteric Deviation from normal: encephalopathic - Problem List (1) Palliative care encounter Code(s): Z51.5 - ENCOUNTER FOR PALLIATIVE CARE Current Visit: Yes Status: Acute (2) Acute anemia Code(s): D64.9 - ANEMIA, UNSPECIFIED Current Visit: Yes Status: Acute (3) Cirrhosis, alcoholic Code(s): K70.30 - ALCOHOLIC CIRRHOSIS OF LIVER WITHOUT ASCITES Current Visit: Yes Status: Acute (4) Coagulopathy Current Visit: Yes Status: Acute (5) Retroperitoneal hematoma Code(s): K66.1 - HEMOPERITONEUM Current Visit: Yes Status: Acute (6) Abnormal LFTs Code(s): R94.5 - ABNORMAL RESULTS OF LIVER FUNCTION STUDIES Current Visit: No Status: Acute (7) Hepatic steatosis Code(s): K76.0 - FATTY (CHANGE OF) LIVER, NOT ELSEWHERE CLASSIFIED Current Visit: No Status: Acute (8) Protein-calorie malnutrition, moderate Code(s): E44.0 - MODERATE PROTEIN-CALORIE MALNUTRITION Current Visit: No Status: Chronic - Plan/Recommendations Plan: Short life review with patient daughter. Ms Arthur daughter is her surrogate decision maker, patient mother in route. Will address resuscitation status once patient mother arrives and patient daughter has additional support. Revisited current health status and poor meaningful recovery. Therapeutic Listening and emotional support offered. Spiritual care aware, discussed with Father Percy. Please also refer to Brenda Dye RNadministrator health care facility notes in note section. Will address resuscitation status and Goal of care once additional family present to support patient daughter who is 18. [40] minutes spent on this encounter with >50% of the time in counseling and coordination of care. Thank you for this very appropriate consult.
[2019-10-23] MEDS: Piperacillin/Tazobactam 3.375 GM in Sodium Chloride 0.9% 100 ML IVPB SCH ×2 (15:26→22:11)
--- NOTE | 2019-10-23 16:56 | PDOC.PALFU ---
Palliative Care Follow-up Note Patient mother Odalys arrived. Met with patient daughter Guillermina and her mother Odalys. Discussed health status, fragile state, and current interventions to sustain life. Shared that she is not a candidate for a liver transplant as per GI. Discussed resuscitation status and care verses harm as well as poor meaningful recovery should further resuscitation measures be attempted. Daughter and mother to discuss considering transition to DNAR and relay decision to Korey ROSSI or Malinda. Will continue to assist family with Goal of Care.
[2019-10-23 17:48] LABS: Hemoglobin 6.7 g/dL (12.0-16.0); PTT 49.2 sec (22.9-36.1); Prothrombin Time 30.8 sec (12.0-14.7)
[2019-10-23] MEDS: cefTRIAXone\\ROCEPHIN 1 GM in Sodium Chloride 0.9% 100 ML IVPB SCH (17:59)
[2019-10-24] MEDS ORDERED: Dextrose 50% Abboject 50 ML SYRINGE ONE (00:01)
[2019-10-24 00:11] LABS: Hemoglobin 7.1 g/dL (12.0-16.0)
[2019-10-24 00:17] LABS: INR-International Normal Ratio 3.7; Prothrombin Time 36.7 sec (12.0-14.7)
[2019-10-24] MEDS ORDERED: Dextrose 5% in Water 1,000 ML IV PRN (00:34)
[2019-10-24] MEDS ORDERED: Dextrose 50% Abboject 50 ML SYRINGE SLOW IVP PRN (00:34)
[2019-10-24] MEDS ORDERED: Dextrose 5 %-0.45 % NaCl 1,000 ML IV SCH (02:30)
[2019-10-24] MEDS ORDERED: Dextrose 10% in Water 500 ML IV SCH ×2 (02:30→02:45)
[2019-10-24] MEDS: Piperacillin/Tazobactam 3.375 GM in Sodium Chloride 0.9% 100 ML IVPB SCH ×2 (02:44→08:01)
[2019-10-24] MEDS ORDERED: Vancomycin HCl 750 MG in Sodium Chloride 0.9% 250 ML 250 ML IVPB SCH (03:00)
[2019-10-24 06:16] LABS: ALT (SGPT) 551 U/L (8-55); AST (SGOT) Greater than 3500 U/L (5-34); Albumin 2.7 g/dL (3.5-5.0); Alkaline Phosphatase 191 U/L (40-110); Anion Gap 30 mmol/L (10-20); BUN (Urea Nitrogen) 21 mg/dL (7.0-18.7); Bilirubin, Total 19.3 mg/dL (0.2-1.2); Calc. Creatinine Clearance 32 mL/min (70-130); Calcium 6.1 mg/dL (7.8-10.44); Carbon Dioxide 12 mmol/L (22-29); Chloride 98 mmol/L (98-107); Estimated GFR-MDRD 23; Globulin 2.1 g/dL (2.4-3.5); Glucose 65 mg/dL (70-105); Potassium 5.6 mmol/L (3.5-5.1); Protein, Total 4.8 g/dL (6.0-8.3); Sodium 134 mmol/L (136-145)
[2019-10-24] MEDS: Norepinephrine 8 MG/0.9% NS 250 ML IVPB SCH ×2 (07:04→11:09)
[2019-10-24 07:11] LABS: Actual Bicarbonate (HCO3a) 11.3 mEq/L (22-28); Base Excess (BEa) -14.9 mEq/L (-2.0 to +3.0); CO2 Tension 27.5 mmHg (35.0-45.0); Carboxyhemoglobin (COHb) 2.7 gm% (0.0-3.0); Hemoglobin (Hb) 7.9 g/dL (12.0-16.0); O2 Tension (PaO2), arterial 60.2 mmHg (80.0-100.0); Potassium - ABG Lab 5.38 mmol/L (3.70-5.30)
[2019-10-24] MEDS: Folic Acid 1 MG TAB PO SCH (07:30)
[2019-10-24] MEDS: Magnesium Oxide 400 MG TAB PO SCH (07:31)
[2019-10-24] MEDS: Multivitamin W/ Minerals 1 TAB PO SCH (07:31)
[2019-10-24 07:40] VITALS: TEMP 97.7
--- NOTE | 2019-10-24 07:51 | PDOC.HOSPP ---
- Subjective Encounter Date: 10/24/19 Encounter Time: 07:55 Subjective: Ms. Scott was seen today for follow up for severe anemia and retroperitoneal bleeding. She remains intubated and palliative care has been discussing MPOA with her daughter Guillermina and mother Odalys. - Objective Vital Signs & Weight: Vital Signs (12 hours) Temp Pulse BP Pulse Ox 10/24/19 07:00 97.7 F 10/24/19 06:42 99 78/36 L 90 L 10/24/19 02:50 103 H 91/36 L 10/23/19 22:00 107 H 96/35 L Weight Admit Weight 138 lb 0.15 oz Weight 138 lb 0.15 oz Most Recent Monitor Data Heart Rate from ECG 99 NIBP 93/35 NIBP BP-Mean 54 Respiration from ECG 22 SpO2 89 I&O: 10/23/19 10/24/19 10/25/19 06:59 06:59 06:59 Intake Total 5027.8 5683 Output Total 435 130 0 Balance 4592.8 5553 0 Result Diagrams: 10/24/19 07:50 10/24/19 04:48 Additional Labs: Accuchecks 10/24/19 10/24/19 10/24/19 07:33 04:52 02:08 POC Glucose 95 85 71 10/24/19 10/24/19 00:36 00:04 POC Glucose 107 Less than 35 L* Hospitalist ROS - Medication Medications: Active Medications Generic Name Dose Route Start Last Admin Trade Name Freq PRN Reason Stop Dose Admin Acetaminophen 650 mg 10/19/19 11:58 10/21/19 20:08 Tylenol PO 650 mg Q6H PRN Administration Headache/Fever or Pain Diazepam 5 mg 10/20/19 04:00 10/20/19 14:10 Valium PO 5 mg Q4H PRN Administration FOR ASE 10 OR GREATER Folic Acid 1 mg 10/20/19 09:00 10/24/19 07:30 Folvite PO Not Given DAILY RFANCESCA Ceftriaxone Sodium 1 gm/ 100 mls @ 200 mls/hr 10/22/19 18:00 10/23/19 17:59 Sodium Chloride IVPB 100 mls Q24HR FRANCESCA Administration Norepinephrine Bitartrate 250 mls @ 0 mls/hr 10/22/19 23:45 10/24/19 07:04 Levophed IVPB 250 mls INF FRANCESCA Administration Protocol Titrate Fentanyl Citrate 2,000 mcg/ 100 mls @ 0 mls/hr 10/23/19 02:23 10/23/19 17:48 Sodium Chloride IV 11/22/19 02:23 100 mls INF FRANCESCA Administration Protocol Per Protocol Sodium Bicarbonate 140 meq/ 1,140 mls @ 75 mls/hr 10/23/19 07:45 10/23/19 23: 20 Dextrose/Water IV 1,140 mls .[id number] FRANCESCA Administration Piperacillin Sod/Tazobactam 100 mls @ 200 mls/hr 10/23/19 15:00 10/24/19 02: 44 Sod 3.375 gm/ Sodium Chloride IVPB 100 mls 0300,0900,1500,2100 FRANCESCA Administration Vancomycin HCl 1.25 gm/ Sodium 250 mls @ 166.667 mls/hr 10/23/19 15:00 15:38 Chloride IVPB 250 mls 1500 FRANCESCA Administration Vancomycin HCl 750 mg/ Sodium 250 mls @ 250 mls/hr 10/24/19 03:00 10/24/19 02 :50 Chloride IVPB 250 mls 0300,1500 FRANCESCA Administration Dextrose/Water 500 mls @ 50 mls/hr 10/24/19 02:45 10/24/19 02:45 Dextrose 10% In Water IV 10/24/19 12:44 500 mls .Q10H FRANCESCA Administration Iron/Minerals/Multivitamins 1 tab 10/21/19 09:00 10/24/19 07:31 Theragran M PO Not Given DAILY [facility] Lorazepam 2 mg 10/23/19 02:23 10/23/19 04:13 Ativan SLOW IVP 11/22/19 02:23 2 mg Q1H PRN Administration Breakthrough agitation Magnesium Oxide 400 mg 10/20/19 09:00 10/24/19 07:31 Magnesium Oxide PO Not Given DAILY [facility] Morphine Sulfate 2 mg 10/22/19 10:43 10/22/19 18:31 Morphine SLOW IVP 2 mg Q4H PRN Administration Moderate Pain (4-6) Morphine Sulfate 4 mg 10/22/19 10:43 10/22/19 10:54 Morphine SLOW IVP 4 mg Q4H PRN Administration Severe Pain (7-10) Pantoprazole Sodium 40 mg 10/23/19 09:00 10/23/19 08:46 Protonix IVP 40 mg DAILY FRANCESCA Administration Propofol 1,000 mg 10/23/19 02:23 10/23/19 08:46 Diprivan IV 11/22/19 02:23 1,000 mg INF PRN Administration TO ACHIEVE GOAL RASS Protocol Thiamine HCl 100 mg 10/23/19 10:00 10/23/19 09:26 Thiamine Hcl SLOW IVP 100 mg 1000 FRANCESCA Administration - Exam Eye: PERRL, anicteric sclera ENT: normocephalic atraumatic Neck: no JVD Heart: no murmur, no gallops, no rubs, normal peripheral pulses Respiratory: CTAB, no wheezes, no rales, no ronchi Gastrointestinal: distended (Patient has a distended abdomen as well as tense thighs due to the bleeding), diminished bowl sounds Extremities: no cyanosis, 2+ LE edema Skin: no rashes Hosp A/P (1) Cirrhosis, alcoholic Code(s): K70.30 - ALCOHOLIC CIRRHOSIS OF LIVER WITHOUT ASCITES Status: Acute (2) Acute anemia Code(s): D64.9 - ANEMIA, UNSPECIFIED Status: Acute (3) Macrocytic anemia Code(s): D53.9 - NUTRITIONAL ANEMIA, UNSPECIFIED Status: Chronic (4) Protein-calorie malnutrition, moderate Code(s): E44.0 - MODERATE PROTEIN-CALORIE MALNUTRITION Status: Chronic (5) Retroperitoneal hematoma Code(s): K66.1 - HEMOPERITONEUM Status: Acute (6) Coagulopathy Status: Acute - Plan * Large retroperitoneal Hematoma- she is s/p embolization * She has developed hemorrhagic shock and acute kidney injury * Condition is guarded * Palliative care worked with mother (Odalys) and daughter (Guillermina) to establish DNAR. * Agree with above, see note to follow
[2019-10-24] MEDS: Pantoprazole 40 MG VIAL IVP SCH (08:01)
[2019-10-24 08:14] LABS: PTT 54.7 sec (22.9-36.1)
[2019-10-24 08:17] LABS: Hemoglobin 6.6 g/dL (12.0-16.0)
[2019-10-24 08:26] LABS: INR-International Normal Ratio 5.7
[2019-10-24 08:28] LABS: Puncture Site ALINE; pH, Arterial 7.23 (7.35-7.45)
[2019-10-24 08:29] LABS: ALV-art Gradient 440.175 (0-20)
--- NOTE | 2019-10-24 09:07 | RAD ---
CHEST 1 VIEW: INDICATION: History of pneumonia. COMPARISON: Prior exam dated 10/23/2019. IMPRESSION: There is worsening pleural parenchymal opacity of the right lung which may reflect worsening volume l oss or pneumonia. There is persistent cardiomegaly. The patient remains intubated with left-sided s ubclavian central venous catheter placement and gastric catheter placement. No pneumothorax is evide nt. Osseous structures are similar-appearing. POS: BH
--- NOTE | 2019-10-24 09:41 | PRG ---
DATE OF SERVICE: 10/24/2019 CRITICAL CARE TIME: 30 minutes. SUBJECTIVE: The patient continues to do very poorly. She has still been receiving blood products. She has received a total of 17 packed red cells; 11 FFPs; 1 platelets; she had 2 of cryoprecipitate ordered, but was not given. I think she was also given Kcentra. Despite that, she has continued to pool blood in the retroperitoneal area. OBJECTIVE: VITAL SIGNS: Temperature is 97.5, pulse 98, blood pressure 89/35. GENERAL: She is comatose, on mechanical ventilation. HEENT: Jaundiced sclerae present. NECK: No JVD. CHEST: Coarse breath sounds. CARDIOVASCULAR: S1 and S2. Slightly bradycardic. ABDOMEN: Distended, firm, especially on the right side. EXTREMITIES: Edematous. LABORATORY DATA: INR is 5.7, hemoglobin 6.6, hematocrit 19.6, last platelet count 88. INR 5.7. Sodium 134, potassium 5.6, chloride 98, CO2 of 12, BUN 21, creatinine 2.4, glucose 65, AST 3500, ALT 551. ASSESSMENT: 1. Retroperitoneal hemorrhage with continued bleeding despite aggressive transfusion. 2. Status post embolization. 3. Hyperkalemia. PLAN: I do not see this as a salvageable situation. I will continue ventilator management, but I will leave it up to the primary care team and GI about how much further to go in terms of transfusing the patient. Job ID: [id number]
--- NOTE | 2019-10-24 09:50 | PDOC.HOSPP ---
- Subjective Encounter Date: 10/24/19 Encounter Time: 09:48 Subjective: Ms. Scott was seen today in follow-up of alcoholic liver disease, with severe coagulopathy, and retroperitoneal bleed. She is intubated and sedated. - Objective Vital Signs & Weight: Vital Signs (12 hours) Temp Pulse Resp BP Pulse Ox 10/24/19 08:00 22 H 10/24/19 07:00 97.7 F 10/24/19 06:42 99 78/36 L 90 L 10/24/19 02:50 103 H 91/36 L 10/23/19 22:00 107 H 96/35 L Weight Admit Weight 138 lb 0.15 oz Weight 138 lb 0.15 oz Most Recent Monitor Data Heart Rate from ECG 98 NIBP 92/36 NIBP BP-Mean 54 Respiration from ECG 22 SpO2 89 I&O: 10/23/19 10/24/19 10/25/19 06:59 06:59 06:59 Intake Total 5027.8 5683 Output Total 435 130 0 Balance 4592.8 5553 0 Result Diagrams: 10/24/19 07:50 10/24/19 04:48 Additional Labs: Accuchecks 10/24/19 10/24/19 10/24/19 07:33 04:52 02:08 POC Glucose 95 85 71 10/24/19 10/24/19 00:36 00:04 POC Glucose 107 Less than 35 L* Hospitalist ROS - Medication Medications: Active Medications Generic Name Dose Route Start Last Admin Trade Name Freq PRN Reason Stop Dose Admin Acetaminophen 650 mg 10/19/19 11:58 10/21/19 20:08 Tylenol PO 650 mg Q6H PRN Administration Headache/Fever or Pain Diazepam 5 mg 10/20/19 04:00 10/20/19 14:10 Valium PO 5 mg Q4H PRN Administration FOR ASE 10 OR GREATER Folic Acid 1 mg 10/20/19 09:00 10/24/19 07:30 Folvite PO Not Given DAILY FRANCESCA Ceftriaxone Sodium 1 gm/ 100 mls @ 200 mls/hr 10/22/19 18:00 10/23/19 17:59 Sodium Chloride IVPB 100 mls Q24HR FRANCESCA Administration Norepinephrine Bitartrate 250 mls @ 0 mls/hr 10/22/19 23:45 10/24/19 07:04 Levophed IVPB 250 mls INF FRANCESCA Administration Protocol Titrate Fentanyl Citrate 2,000 mcg/ 100 mls @ 0 mls/hr 10/23/19 02:23 10/23/19 17:48 Sodium Chloride IV 11/22/19 02:23 100 mls INF FRANCESCA Administration Protocol Per Protocol Sodium Bicarbonate 140 meq/ 1,140 mls @ 75 mls/hr 10/23/19 07:45 10/23/19 23: 20 Dextrose/Water IV 1,140 mls .[id number] FRANCESCA Administration Piperacillin Sod/Tazobactam 100 mls @ 200 mls/hr 10/23/19 15:00 10/24/19 08: 01 Sod 3.375 gm/ Sodium Chloride IVPB 100 mls 0300,0900,1500,2100 FRANCESCA Administration Vancomycin HCl 750 mg/ Sodium 250 mls @ 250 mls/hr 10/24/19 03:00 10/24/19 02 :50 Chloride IVPB 250 mls 0300,1500 FRANCESCA Administration Dextrose/Water 500 mls @ 50 mls/hr 10/24/19 02:45 10/24/19 02:45 Dextrose 10% In Water IV 10/24/19 12:44 500 mls .Q10H FRANCESCA Administration Iron/Minerals/Multivitamins 1 tab 10/21/19 09:00 10/24/19 07:31 Theragran M PO Not Given DAILY [facility] Lorazepam 2 mg 10/23/19 02:23 10/23/19 04:13 Ativan SLOW IVP 11/22/19 02:23 2 mg Q1H PRN Administration Breakthrough agitation Magnesium Oxide 400 mg 10/20/19 09:00 10/24/19 07:31 Magnesium Oxide PO Not Given DAILY [facility] Morphine Sulfate 2 mg 10/22/19 10:43 10/22/19 18:31 Morphine SLOW IVP 2 mg Q4H PRN Administration Moderate Pain (4-6) Morphine Sulfate 4 mg 10/22/19 10:43 10/22/19 10:54 Morphine SLOW IVP 4 mg Q4H PRN Administration Severe Pain (7-10) Pantoprazole Sodium 40 mg 10/23/19 09:00 10/24/19 08:01 Protonix IVP 40 mg DAILY FRANCESCA Administration Propofol 1,000 mg 10/23/19 02:23 10/23/19 08:46 Diprivan IV 07/22/20 02:23 1,000 mg INF PRN Administration TO ACHIEVE GOAL RASS Protocol Thiamine HCl 100 mg 10/23/19 10:00 10/23/19 09:26 Thiamine Hcl SLOW IVP 100 mg 1000 FRANCESCA Administration Hosp A/P (1) Cirrhosis, alcoholic Code(s): K70.30 - ALCOHOLIC CIRRHOSIS OF LIVER WITHOUT ASCITES Status: Acute (2) Acute anemia Code(s): D64.9 - ANEMIA, UNSPECIFIED Status: Acute (3) Hypokalemia Code(s): E87.6 - HYPOKALEMIA Status: Deleted (4) Macrocytic anemia Code(s): D53.9 - NUTRITIONAL ANEMIA, UNSPECIFIED Status: Chronic (5) Protein-calorie malnutrition, moderate Code(s): E44.0 - MODERATE PROTEIN-CALORIE MALNUTRITION Status: Chronic (6) Retroperitoneal hematoma Code(s): K66.1 - HEMOPERITONEUM Status: Acute (7) Coagulopathy Status: Acute - Plan * Large retroperitoneal Hematoma- she is s/p embolization * She continues to have a severe coagulopathy despite FFP administration. Her H& H continues to drop despite transfusion * Her liver parameters have worsened * She is developing acute kidney injury, and possibly early hepato-renal syndrome * It also appears she has reached a level of diminishing returns with regards to our ability to maintain an adequate Hemoglobin, and INR. Will defer to Gastroenterology * Her code status has been changed to DNR * She is on pressor support for her blood pressure * Condition is guarded * Will discuss with family her dismal prognosis, and she is unlikely not to survive this hospitalization
[2019-10-24] MEDS: Thiamine HCl 200 MG/2 ML VIAL SLOW IVP SCH (10:40)
[2019-10-24 11:12] VITALS: BP 85/36
[2019-10-24] MEDS ORDERED: Hyoscyamine Sulfate SL 0.125 mg Tablet PO PRN (13:46)
[2019-10-24] MEDS ORDERED: Lorazepam 2 MG/ML VIAL SLOW IVP PRN (13:48)
[2019-10-24] MEDS ORDERED: Morphine 4 MG/ML VIAL SLOW IVP PRN (13:51)
--- NOTE | 2019-10-24 13:53 | PDOC.PALPN ---
Palliative Progress Note - Subjective Remains intubated, sedated, hemodynamically supported - Objective Vital Signs: Vital Signs - Most Recent Temp Pulse Resp BP Pulse Ox 97.7 F 98 22 H 85/36 L 88 L 10/24/19 07:00 10/24/19 11:09 10/24/19 12:00 10/24/19 11:09 10/24/19 08:00 - Physical Exam Constitutional: encephalitic, ill appearing HEENT: moist MMs, scleral icterus Deviation from normal: mechanical ventilation Deviation from normal: tachycardic Deviation from normal: distended Genitourinary: marie catheter Musculoskeletal: edema present, diffuse muscle atrophy Deviation from normal: sedated Deviation from normal: icteric Deviation from normal: encephalopathic - Assessment (1) Palliative care encounter Code(s): Z51.5 - ENCOUNTER FOR PALLIATIVE CARE Current Visit: Yes Status: Acute (2) Acute anemia Code(s): D64.9 - ANEMIA, UNSPECIFIED Current Visit: Yes Status: Acute (3) Cirrhosis, alcoholic Code(s): K70.30 - ALCOHOLIC CIRRHOSIS OF LIVER WITHOUT ASCITES Current Visit: Yes Status: Acute (4) Coagulopathy Current Visit: Yes Status: Acute (5) Retroperitoneal hematoma Code(s): K66.1 - HEMOPERITONEUM Current Visit: Yes Status: Acute (6) Abnormal LFTs Code(s): R94.5 - ABNORMAL RESULTS OF LIVER FUNCTION STUDIES Current Visit: No Status: Acute (7) Hepatic steatosis Code(s): K76.0 - FATTY (CHANGE OF) LIVER, NOT ELSEWHERE CLASSIFIED Current Visit: No Status: Acute (8) Protein-calorie malnutrition, moderate Code(s): E44.0 - MODERATE PROTEIN-CALORIE MALNUTRITION Current Visit: No Status: Chronic - Plan Plan: Family meeting with Palliative Care, Dr Squires, patient mother Odalys and daughter Guillermina. After discussing poor chance of meaningful recovery related to current multiple morbidities family has elected to withdraw care. They are hoping to get the patient father to bedside after extubation. Order for comfort medications to be given Respiratory to extubate when the family is ready. Emotional support and therapeutic listening. Spiritual care aware and active in care [35] minutes spent on this encounter with >50% of the time in counseling and coordination of care. - ROS Non Response: due to endotracheal tube, due to mental status
[2019-10-24] MEDS ORDERED: Scopolamine 1.5 mg/72 hour Patch TD SCH (14:00)
[2019-10-24] MEDS: Sodium Bicarbonate 140 MEQ in Dextrose 5% in Water 1,000 ML IV SCH (14:46)
--- NOTE | 2019-10-25 01:38 | DIS ---
DATE OF ADMISSION: 10/18/2019 DATE OF DISCHARGE: 10/24/2019 PRIMARY CARE PHYSICIAN: Oumar Mack. DIAGNOSES: 1. Fulminant hepatic failure. 2. Alcoholic cirrhosis. 3. Coagulopathy secondary to #1. 4. Profound anemia. 5. Retroperitoneal hematoma. HOSPITAL COURSE: Ms. Scott is a 39-year-old female, who has a history of longstanding alcoholism. She apparently was drinking up to the point of her admission up to four pints of vodka per week. She presented with extreme fatigue and was found to have a profound anemia with a hemoglobin of 3.4. She also had a coagulopathy with an INR of 3.3. She was found to have a large retroperitoneal hematoma by CT scan. She was admitted and transfused to reach a hemoglobin of 8.5 at the highest. However, she was also given FFP and attempts at trying to improve the coagulopathy. However, after she was transfused, her hemoglobin still continued to trend downward. Vascular Surgery was consulted and the patient underwent an emergent embolization and attempt at trying to achieve some degree of hemostasis. The patient developed hemorrhagic shock and had to be intubated. Attempts were continued at transfusion and giving her FFP. However, we were never able to get ahead of the anemia nor the coagulopathy. Her INR went up once again despite all of these efforts. An attempt was also made at trying to transfer the patient to a higher level of care at a different facility. However, this was not able to be accomplished due to lack of bed availability and the unstable nature of the patient. A meeting was held with the family and her code status was changed to DNR and given the futile nature of the situation, the patient's mother as well as the patient's daughter jointly made a decision to withdrawal the ventilator and the patient at approximately 3:15 p.m. Job ID: [id number]
[2019-10-27 10:57] LABS: Actual Bicarbonate (HCO3a) 9.6 mEq/L (22-28); Analyzer IN Cardio OR; Base Excess (BEa) -19.5 mEq/L (-2.0 to +3.0); Calcium, Ionized (arterial) 0.78 mmol/L (1.12-1.30); Hemoglobin (Hb) 7.8 g/dL (12.0-16.0); O2 Tension (PaO2), arterial 80.4 mmHg (80.0-100.0); Potassium - ABG Lab 4.44 mmol/L (3.70-5.30)
[2019-10-27 11:06] LABS: Puncture Site ALINE; pH, Arterial 7.05 (7.35-7.45)
== END 2019-10-24 15:14 | disposition expired | DRG 981 ==
LOC: ERS 17:59 → ERHOLD 23:46 → IMCU/EMU 10-19 10:06 → T4-A 10-20 15:48 → CCU 10-22 17:30
PROVIDERS: ADMIT Internal Medicine; ATTEND Internal Medicine
PROC: 30233N1 Transfusion of Nonautologous Red Blood Cells into Peripheral Vein, Percutaneous Approach (ICD-10-PCS; 2019-10-18)
PROC: 30233K1 Transfusion of Nonautologous Frozen Plasma into Peripheral Vein, Percutaneous Approach (ICD-10-PCS; 2019-10-19)
PROC: 3E033XZ Introduction of Vasopressor into Peripheral Vein, Percutaneous Approach (ICD-10-PCS; 2019-10-22)
PROC: 04LE3DZ Occlusion of Right Internal Iliac Artery with Intraluminal Device, Percutaneous Approach (ICD-10-PCS; principal; 2019-10-23)
PROC: B4101ZZ Fluoroscopy of Abdominal Aorta using Low Osmolar Contrast (ICD-10-PCS; 2019-10-23)
PROC: B41F1ZZ Fluoroscopy of Right Lower Extremity Arteries using Low Osmolar Contrast (ICD-10-PCS; 2019-10-23)
PROC: 0BH17EZ Insertion of Endotracheal Airway into Trachea, Via Natural or Artificial Opening (ICD-10-PCS; 2019-10-23)
PROC: 5A1945Z Respiratory Ventilation, 24-96 Consecutive Hours (ICD-10-PCS; 2019-10-23)
PROC: 03HY32Z Insertion of Monitoring Device into Upper Artery, Percutaneous Approach (ICD-10-PCS; 2019-10-23)
PROC: 30233R1 Transfusion of Nonautologous Platelets into Peripheral Vein, Percutaneous Approach (ICD-10-PCS; 2019-10-23)
DX: K70.40 Alcoholic hepatic failure without coma (principal); K66.1 Hemoperitoneum; D68.9 Coagulation defect, unspecified; K86.1 Other chronic pancreatitis; D62 Acute posthemorrhagic anemia; E44.0 Moderate protein-calorie malnutrition; E87.2 Acidosis; N17.9 Acute kidney failure, unspecified; Z51.5 Encounter for palliative care; Z66 Do not resuscitate; R57.8 Other shock; I95.9 Hypotension, unspecified; E87.6 Hypokalemia; F17.210 Nicotine dependence, cigarettes, uncomplicated; M79.81 Nontraumatic hematoma of soft tissue; F10.20 Alcohol dependence, uncomplicated; K70.31 Alcoholic cirrhosis of liver with ascites; D69.6 Thrombocytopenia, unspecified; Z68.21 Body mass index [BMI] 21.0-21.9, adult
CPT/HCPCS: 36415; 36416; 36430; 37244; 71045; 74177; 76942; 78278; 80053; 80074; 82140; 82330; 82607; 82746; 82803; 82805; 83690; 83735; 84100; 84703; 85025; 85060; 85610; 85652; 85730; 86140; 86850; 86900; 86901; 87040; 87635; 90471; 90732; 93005; 94002; 94003; 96374; 96375; A9604; C1760; C9113; C9132; G0009; J0696; J1644; J2060; J2270; J2543; J2704; J3010; J3370; J3411; J3430; J3475; J3480; J3490; J7050; J7070; J7620; P9016; P9035; P9047; P9059; Q9967; U0003